=== PATIENT | female | born 1945 | race Hispanic/Latino ===

== ENCOUNTER 2019-11-19 17:28 | Inpatient (IN) | payer MEDICARE ==
[~2019-11-19] VITALS: Ht 152.4 cm; Wt 96.2 kg
--- NOTE | 2019-11-19 17:49 | Emergency Department Note ---
History of Present Illnes History of Present Illness Chief Complaint: General Medicine Complaints History of Present Illness This is a 74 year old female Chief Complaint Comment Patient in from home with reports that she has severe abdominal pain rated 8/10 and was told by Dr Ocampo for evaluation of jaundice to her skin and eyes as well as unintentional weight loss after having blood work done on Sunday. Patient complains of weakness and loss of appetite. Patient reports the pain started 2 weeks ago and the jaundice started about 1 week ago. 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 Any updates have been documented here. (HIRAM MARTINEZ MD) Past Medical History Recent Fever: No Clinical Suspicion of Infectio: No New/Unexplained Change in Ment: No Past Medical History: Hypertension, Diabetes, Hypothyroidism, Hyperlipedemia Past Surgical History: Appendectomy, Hysterectomy, PCI, Hip Replacement, Hernia Repair (HIRAM MARTINEZ MD) Review of Systems Review of Systems Constitutional: Reports as per HPI, Reports weakness EENTM: Reports no symptoms Cardiovascular: Reports no symptoms Respiratory: Reports no symptoms Gastrointestinal: Reports as per HPI, Reports other (Distention) Genitourinary: Reports no symptoms Musculoskeletal: Reports no symptoms Integumentary: Reports as per HPI, Reports change in color (jaundice) Neurological: Reports no symptoms Psychological: Reports no symptoms Endocrine: Reports no symptoms Hematological/Lymphatic: Reports no symptoms (HIRAM MARTINEZ MD) Physical Exam Related Data Allergies: Coded Allergies: morphine (Verified Allergy, Mild, HIVES, 04/21/11) Sulfa (Sulfonamide Antibiotics) (Verified Allergy, Unknown, 11/19/19) Uncoded Allergies: SULFA (Allergy, Mild, HIVES, 04/21/11) Triage Vital Signs Vital Signs Date Time Temp Pulse Resp B/P (MAP) Pulse Ox O2 Delivery O2 Flow Rate FiO2 11/19/19 17:33 98.2 80 18 160/60 99 Room Air Vital signs reviewed: Yes (HIRAM MARTINEZ MD) Physical Exam CONSTITUTIONAL Constitutional: Present well-developed, Present well-nourished HENT HENT: Present normocephalic, Present atraumatic, Present oropharynx clear/moist, Present nose normal HENT L/R: Present left ext ear normal, Present right ext ear normal EYES Eyes: Reports PERRL, Reports conjunctivae normal NECK Neck: Present ROM normal PULMONARY Pulmonary: Present effort normal, Present breath sounds normal CARDIOVASCULAR Cardiovascular: Present regular rhythm, Present heart sounds normal, Present capillary refill normal, Present normal rate GASTROINTESTINAL Abdominal: Present soft, Present nontender, Present bowel sounds normal, Presen t distension GENITOURINARY Genitourinary: Present exam deferred SKIN Skin: Present warm, Present dry, Present jaundiced MUSCULOSKELETAL Musculoskeletal: Present ROM normal NEUROLOGICAL Neurological: Present alert, Present oriented x 3, Present no gross motor or sensory deficits PSYCHOLOGICAL Psychological: Present mood/affect normal, Present judgement normal (HIRAM MARTINEZ MD) Results Laboratory Lab results reviewed: Yes (HIRAM MARTINEZ MD) Laboratory Laboratory Tests Test 11/19/19 18:15 11/19/19 17:50 11/19/19 17:28 White Blood Count 7.73 x10e3/uL (4.8-10.8) Red Blood Count 4.39 x10e6/uL (3.6-5.1) Hemoglobin 11.3 g/dL (12.0-16.0) Hematocrit 36.1 % (34.2-44.1) Mean Corpuscular Volume 82.2 fL (81-99) Mean Corpuscular Hemoglobin 25.7 pg (28-32) Mean Corpuscular Hemoglobin Concent 31.3 g/dL (31-35) Red Cell Distribution Width 19.8 % (11.7-14.4) Platelet Count 282 x10e3/uL (140-360) Neutrophils (%) (Auto) 78.3 % (38.7-80.0) Lymphocytes (%) (Auto) 12.2 % (18.0-39.1) Monocytes (%) (Auto) 7.0 % (4.4-11.3) Eosinophils (%) (Auto) 1.6 % (0.0-6.0) Basophils (%) (Auto) 0.4 % (0.0-1.0) Neutrophils # (Auto) 6.1 (2.1-6.9) Lymphocytes # (Auto) 0.9 (1.0-3.2) Monocytes # (Auto) 0.5 (0.2-0.8) Eosinophils # (Auto) 0.1 (0.0-0.4) Basophils # (Auto) 0.0 (0.0-0.1) Absolute Immature Granulocyte (auto 0.04 x10e3/uL (0-0.1) Prothrombin Time 14.9 seconds (11.9-14.5) Prothromb Time International Ratio 1.11 Sodium Level 133 mmol/L (136-145) Potassium Level 4.2 mmol/L (3.5-5.1) Chloride Level 100 mmol/L (98-107) Carbon Dioxide Level 17 mmol/L (22-29) Anion Gap 20.2 mmol/L (8-16) Blood Urea Nitrogen 20 mg/dL (7-26) Creatinine 1.50 mg/dL (0.57-1.11) Estimat Glomerular Filtration Rate 34 ML/MIN (60-) BUN/Creatinine Ratio 13 (6-25) Glucose Level 373 mg/dL (74-118) Calcium Level 10.6 mg/dL (8.4-10.2) Total Bilirubin 12.1 mg/dL (0.2-1.2) Aspartate Amino Transf (AST/SGOT) 103 IU/L (5-34) Alanine Aminotransferase (ALT/SGPT) 78 IU/L (0-55) Alkaline Phosphatase 951 IU/L (40-150) Ammonia 97 UG/DL (31-123) Total Protein 7.4 g/dL (6.5-8.1) Albumin 3.2 g/dL (3.5-5.0) Globulin 4.2 g/dL (2.3-3.5) Albumin/Globulin Ratio 0.8 (0.8-2.0) Lipase 67 U/L (8-78) Lab results reviewed: Yes (ERI QUIROGA MD) Imaging Imaging results reviewed: Yes (HIRAM MARTINEZ MD) Imaging results reviewed: Yes Impressions Procedure: [id number] CT/CT ABDOMEN/PELVIS WO Exam Date: 11/19/19 Exam Time: 1830 REPORT STATUS: Signed EXAM: CT Abdomen and Pelvis WITHOUT contrast INDICATION: Abdominal distention and jaundice. COMPARISON: None. TECHNIQUE: Abdomen and pelvis were scanned utilizing a multidetector helical scanner from the lung base to the pubic symphysis without administration of IV contrast. Absence of intravenous contrast decreases sensitivity for detection of focal lesions and vascular pathology. Coronal and sagittal reformations were obtained. Routine protocol was performed. IV CONTRAST: None ORAL CONTRAST: None COMPLICATIONS: None RADIATION DOSE: Total DLP: 796 mGy*cm Estimated effective dose: (DLP x 0.015 x size factor) mSv CTDIvol has been reviewed. It is below the limits set by the Radiation Protocol Committee (RPC). Dose modulation, iterative reconstruction, and/or weight based adjustment of the mA/kV was utilized to reduce the radiation dose to as low as reasonably achievable. FINDINGS: LINES and TUBES: None. LOWER THORAX: The partially imaged base of the heart demonstrates atherosclerotic calcification of the coronary vessels. HEPATOBILIARY: No focal hepatic lesions. There is intra- and extra- hepatic biliary dilation. GALLBLADDER: No radio-opaque stones or sludge. No wall thickening. SPLEEN: No splenomegaly. PANCREAS: No focal masses or ductal dilatation. ADRENALS: There is a 2.1 x 1.4 cm left adrenal adenoma. The right adrenal gland is normal. KIDNEYS/URETERS: The bilateral kidneys appear atrophic which can be related to chronic medical renal disease. No hydronephrosis. No cystic or solid mass lesions. No stones. GI TRACT: No abnormal distention, wall thickening, or evidence of bowel obstruction. Appendix is normal. PELVIC ORGANS/BLADDER: Evaluation of pelvic organs is limited by streak artifact from right hip hardware. There is a cystic well-circumscribed mass in the pelvis which measures approximately 5.0 x 1.4 cm (series 2 image 69). LYMPH NODES: No lymphadenopathy. VESSELS: Scattered mild arterial vascular calcifications. PERITONEUM / RETROPERITONEUM: No free air or fluid. 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 No radiographic evidence of hardware complication. There are degenerative changes in the spine. No suspicious osteolytic or osteoblastic lesions SOFT TISSUES: There are granulomatous changes of the posterior soft tissues, likely from prior injections. IMPRESSION: 1. Intra- and extra- hepatic biliary dilation which can be due to post cholecystectomy resevoir effect. However, there are are are no prior images for direct comparison. Patient may benefit from HIDA scan to evaluate functional excretion within the biliary system or MRCP for retained extrahepatic ductal stones. 2. Cystic mass in the pelvis which measures up to 5 cm. Recommend further evaluation of this mass with dedicated pelvic ultrasound and HARDNESS TESTER consultation as this is an abnormal finding in patient of this age group. Signed by: Shira Og MD on 11/19/2019 7:56 PM Dictated By: SHIRA OG MD 54 Transcribed By: DAYRON on 11/19/191955 COPY TO: HIRAM MARTINEZ MD~ (ERI QUIROGA MD) Diagnostics Tests Diagnostic test(s) reviewed: Yes (HIRAM MARTINEZ MD) Assessment & Plan Medical Decision Making MDM 74 y.o F presents for Jaundice, abd distention, weakness. Concern for hepatobiliary etiology. Dr. Adams patient. Labs and CT ordered. Transferred care to Dr. Quiroga @ 1800 (HIRAM MARTINEZ MD) [facility] I SPOKE WITH DR ADAMS AND DR Sumaya ALCALA, ADMIT INPATIENT, ORDER MRCP IN AM (ERI QUIROGA MD) Assessment & Plan Final Impression: (1) Jaundice (HIRAM MARTINEZ MD) Final Impression: (1) Jaundice (2) Total bilirubin, elevated (ERI QUIROGA MD) Depart Disposition: ADMITTED Last Vital Signs Date Time Temp Pulse Resp B/P (MAP) Pulse Ox O2 Delivery O2 Flow Rate FiO2 11/19/19 17:33 98.2 80 18 160/60 99 Room Air (HIRAM MARTINEZ MD) HIRAM MARTINEZ MD Nov 19, 2019 17:49 ERI QUIROGA MD Nov 19, 2019 19:07
[2019-11-19 17:57] LABS: BASOPHILS % 0.4 % (0.0-1.0); EOSINOPHILS # (AUTO) 0.1 (0.0-0.4); EOSINOPHILS % 1.6 % (0.0-6.0); HEMATOCRIT 36.1 % (34.2-44.1); HEMOGLOBIN 11.3 g/dL (12.0-16.0); LYMPHOCYTES # (AUTO) 0.9 (1.0-3.2); LYMPHOCYTES % 12.2 % (18.0-39.1); MEAN CORPUSCULAR HEMOGLOBIN 25.7 pg (28-32); MEAN CORPUSCULAR HGB CONC 31.3 g/dL (31-35); MEAN CORPUSCULAR VOLUME 82.2 fL (81-99); MONOCYTES # (AUTO) 0.5 (0.2-0.8); NEUTROPHILS # (AUTO) 6.1 (2.1-6.9); NEUTROPHILS % 78.3 % (38.7-80.0); PLATELET COUNT 282 x10e3/uL (140-360); RED BLOOD COUNT 4.39 x10e6/uL (3.6-5.1); RED CELL DISTRIBUTION WIDTH 19.8 % (11.7-14.4)
[2019-11-19 18:06] LABS: INR 1.11; PROTHROMBIN TIME 14.9 seconds (11.9-14.5)
[2019-11-19 18:16] LABS: ALBUMIN 3.2 g/dL (3.5-5.0); ALBUMIN/GLOBULIN RATIO 0.8 (0.8-2.0); ANION GAP 20.2 mmol/L (8-16); CALCIUM 10.6 mg/dL (8.4-10.2); CREATININE, SERUM 1.5 mg/dL (0.57-1.11); POTASSIUM 4.2 mmol/L (3.5-5.1)
--- OUTSIDE RECORDS SUMMARY | 2019-11-19 18:17 | XMS REPORT | Continuity of Care Document ---
Author Author [facility] t Organization [facility] Address [address] [place] [address] Phone Unavailable Care Team Providers Care Chairlift Operator Name Role Phone Unavailable Unavailable Payers Payer Name Policy Type Policy Number Effective Date Expiration Date S ource Problems Condition Name Condition Details Condition Category Status Onset Date Resolution Date Last Treatment Date Treating Clinician Comments Source Morbid (severe) obesity due to excess calories Morbid (severe) obesity due to excess calories Active Problem 2018 Betimaddison Amy Hernandez Problem Active 2018 02:46:38 Leandro Oakley 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 Varicose veins of bilateral lower extremities with other complications Active Diagnosis 2018 Samuel Hernandez Diagnosis Active 2018 02:46:38 Paty Oakley Type 2 diabetes mellitus with unspecified complication s Type 2 diabetes mellitus with unspecified complications Active Diagnosis 2018 Samuel Hernandez Diagnosis Active 2018 02:46:3 8 Paty Oakley Pure hypercholesterolemia Pure hypercholesterolemia Active Diagnosis 2018 Samuel Hernandez Diagnosis Active 2018 02:46:38 Paty Oakley Abnormal electrocardiogram Abn ormal electrocardiogram Active Diagnosis 2018 Samuel Hernandez Diagnosis Active 2018 02:46:38 Paty Oakley Essential (primary) hypertension Essential (primary) hypertension Active Diagnosis 2018 Samuel Hernandez Diagnosis Active 2018 02:46:38 Paty Oakley Abnormal gait Abno rmal gait Active Problem 2018 Samuel Hernandez Problem Active 2018 02:46:38 Paty Oakley Stented coronary artery Sten marilee coronary artery Active Diagnosis 2018 Samuel Hernandez Diagnosis Active 2018 02:46:38 [facility] Ad[facility] 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 Problem 2018 Samuel Hernandez Problem Active 2018 02:46:38 [facility] Adin Atherosclerosis of iliam[place] coronary arter y of iliam[place] heart without angina pectoris Atherosclerosis of [place] coronary artery of [place] heart without angina pectoris Active Diagnosis 2018 Samuel Hernandez Diagnosis Active 2018 02:46:38 [facility] Coronary artery disease involving plaza ry bypass graft of [place] heart with unstable angina pectoris Coronary artery disease involving coronary bypass graft of [place] heart with unstable angina pectoris Active Problem 01/02/2017 Samuel Hernandez Problem Active 2017-01-02 03:45:55 [facility] DJD (degenerative joint disease) DJD (degenerative joint disease) Active Problem 2018 Samuel Hernandez Problem Active 2018 02:46:38 [facility] Venous insufficiency Veno us insufficiency Active Problem 2018 Samuel Hernandez Problem Active 2018 02:46:38 [facility] Hypothyroidism Hypo thyroidism Active Problem 2018 Samuel Hernandez Problem Active 2018 02:46:38 [facility] Leg pain Leg pain Active Problem 2018 Samule Hernandez Problem Active 2018 02:46:38 Leandro Oakley Carotid bruit Suazo tid bruit Active Problem 01/02/2017 Samuel Hernandez Problem Active 2017-01-02 03:45:55 [facility] Pure hypercholesterolemia Pure hypercholesterolemia Active Problem 01/02/2017 Samuel Hernandez Problem Active 29-12-20 03:45:55 [facility] Lower extremity edema Lowe r extremity edema Active Diagnosis 2018 Samuel Hernandez Diagnosis Active 2018 02:46:38 [facility] Shortness of breath Shor tness of breath Active Diagnosis 2018 Samuel Hernandez Diagnosis Active 2018 02:46:3 8 [facility] Anginal equivalent Janki nal equivalent Active Diagnosis 2018 Samuel Hernandez Diagnosis Active 2018 02:46:3 8 Paty Oakley 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 Active Problem 2018 Samuel Hernandez Problem Active 2018 02:46:38 Paty Oakley Patient unable to exercise Pat ient unable to exercise Active Problem 2018 Samuel Hernandez Problem Active 2018 02:46:38 Paty Oakley 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 Active Problem 2018 Samuel Amy Antwanti Problem Active 2018 02:46:38 Paty Oakley Atherosclerosis of ili[place] coronary artery of [place] he art with angina pectoris Atherosclerosis of [place] coronary artery of [place] heart with angina pectoris Active Problem 2018 Samuel Amy Antwanti Problem A ctive 2018 02:46:38 Paty alvarado Allergies, Adverse Reactions, Alerts Allergy Name Allergy Type Status Severity Reaction(s) Onset Date Inacti ve Date Treating Clinician Comments Source acetaminophen DA Active [place] 2018-08-18 00:00:00 [facility] sulfa sulfa Active Hives 2017-05-28 00:00:00 [facility] Sulfa (Sulfonamide Antibiotics) DA Active [place] 2013-01-09 00 :00:00 [facility] morphine DA Active [place] 2013-01-09 00:00:00 [facility] Medications Ordered Medication Name Filled Medication Name Start Date Stop Da te Current Medication? Ordering Clinician Indication Dosage Frequency Signature (SIG) Comments Components Source Levothyroxine Sodium 2018 02:46:38 Yes Kristied Jeroudi 1 tablet [facility] Sertraline HCl 2018 02:46:38 Yes Ahmad Jeroudi 1 tablet [facility] Lasix 2018 02:46:38 Yes Ahmad Jeroudi 1 tab let [facility] Metformin HCl 2018 02:46:38 Yes Ahrobinsond Jeroudi 1 tablet [facility] Losartan Potassium 2018 02:46:38 Yes Ahrobinsond Jeroudi 1 tablet [facility] Atorvastatin Calcium 2018 02:46:38 Yes Kristied Jeroudi 1 tablet [facility] Clopidogrel Bisulfate 2018 02:46:38 Yes Kristied Jeroudi 1 tablet [facility] Vitamin D High Potency 2018 02:46:38 Yes Ahmad Antwan oudi 1 capsule [facility] Glimepiride 2018 02:46:38 Yes Ahmad Jeroudi 1 tablet [facility] Pantoprazole Sodium 2018 02:46:38 Yes Ahmad Jeroudi 1 tablet [facility] Famotidine 2018 02:46:38 Yes Ahmad Jeroudi 1 tablet at bedtime [facility] Donepezil HCl 2018 02:46:38 Yes Ahmad Jeroudi 1 tablet at bedtime [facility] Metoprolol Succinate 2018 02:46:38 Yes Ahmad Jeroudi 1 tablet [facility] Gabapentin 2017-01-02 03:45:55 Yes Betiamed Jeroudi not defined [facility] Donepezil Hydrochloride 2017-01-02 03:45:55 Yes Samuel Moncadaoudi 1 tablet at bedtime [facility] Metoprolol Succinate 2017-01-02 03:45:55 Yes Samuel Moncadaoudi 1 tablet [facility] Lasix 2016-09-23 02:46:36 Yes Samuel Moncadaoudi 1 t ablet [facility] Sertraline HCl 2016-09-23 02:46:36 Yes Samuel Jeroudi 1 tablet [facility] Famotidine 2016-09-23 02:46:36 Yes Samuel Moncadaoudi 1 tablet at bedtime [facility] Atorvastatin Calcium 2016-09-23 02:46:36 Yes Samuel Jeroudi 1 tablet [facility] Metformin HCl 2016-09-23 02:46:36 Yes Samuel Moncadaoudi 1 tablet [facility] Losartan Potassium 2016-09-23 02:46:36 Yes Betiamed Jeroudi 1 tablet [facility] Vitamin D High Potency 2016-09-23 02:46:36 Yes Samuel Whiet eroudi 1 capsule [facility] Pantoprazole Sodium 2016-09-23 02:46:36 Yes Samuel Jeroudi 1 tablet [facility] Levothyroxine Sodium 2016-09-23 02:46:36 Yes Mohamed Jeroudi 1 tablet [facility] Clopidogrel Bisulfate 2016-09-23 02:46:36 Yes Samuel Cook roudi 1 tablet [facility] Glimepiride 2016-09-23 02:46:36 Yes Mohamed Jeroudi 1 tablet [facility] Aspirin 2016-09-23 02:46:32 Yes Samuel Moncadaoudi 1 tablet [facility] Potassium Chloride 2016-09-23 02:46:32 Yes Samuel Hernandez 1 capsule [facility] Omprezole 2016-09-23 02:46:32 Yes Samuel Moncadaoudi 1 tablet [facility] Furosemide 2016-09-23 02:46:32 Yes Samuel Moncadaoudi 1 tablet [facility] Vital Signs Vital Name Observation Time Observation Value Comments Source Weight 2017-06-13 19:00:00 [facility] Height 2017-06-13 19:00:00 [facility] Temperature Oral (F) 2017-06-13 19:00:00 98.4 F [facility] Heart Rate 2017-06-13 19:00:00 [facility] Diastolic (mm Hg) 2017-06-13 19:00:00 [facility] Systolic (mm Hg) 2017-06-13 19:00:00 Leandro dieterl [facility] Weight 2017-05-28 20:00:00 [facility] Height 2017-05-28 20:00:00 [facility] Temperature Oral (F) 2017-05-28 20:00:00 97.6 F [facility] Heart Rate 2017-05-28 20:00:00 [facility] Diastolic (mm Hg) 2017-05-28 20:00:00 [facility] [place] [facility] Systolic (mm Hg) 2017-05-28 20:00:00 Leandro samy [facility] Weight 2016-12-25 20:30:00 [facility] Height 2016-12-25 20:30:00 [facility] Temperature Oral (F) 2016-12-25 20:30:00 97.1 F [facility] Heart Rate 2016-12-25 20:30:00 [facility] Diastolic (mm Hg) 2016-12-25 20:30:00 [facility] Systolic (mm Hg) 2016-12-25 20:30:00 Leandro dieterl [facility] Weight 2016-06-12 18:00:00 [facility] Height 2016-06-12 18:00:00 [facility] Temperature Oral (F) 2016-06-12 18:00:00 97.6 F [facility] Heart Rate 2016-06-12 18:00:00 [facility] Diastolic (mm Hg) 2016-06-12 18:00:00 [facility] [place] [facility] Systolic (mm Hg) 2016-06-12 18:00:00 Leandro rial [facility] Weight 2015-12-02 18:30:00 [facility] Height 2015-12-02 18:30:00 [facility] Temperature Oral (F) 2015-12-02 18:30:00 97.1 F [facility] Heart Rate 2015-12-02 18:30:00 [facility] Diastolic (mm Hg) 2015-12-02 18:30:00 [facility] Systolic (mm Hg) 2015-12-02 18:30:00 Leandro rial [place] [facility] Weight 2015-10-06 18:30:00 [facility] Height 2015-10-06 18:30:00 [facility] Temperature Oral (F) 2015-10-06 18:30:00 97.1 F [facility] Heart Rate 2015-10-06 18:30:00 [facility] Diastolic (mm Hg) 2015-10-06 18:30:00 [facility] Systolic (mm Hg) 2015-10-06 18:30:00 Leandro [facility] Weight 2015-09-07 19:00:00 [facility] Height 2015-09-07 19:00:00 [facility] Temperature Oral (F) 2015-09-07 19:00:00 96.7 F [facility] Heart Rate 2015-09-07 19:00:00 [facility] Diastolic (mm Hg) 2015-09-07 19:00:00 [facility] Systolic (mm Hg) 2015-09-07 19:00:00 [facility] Weight 2015-08-25 19:30:00 [facility] Height 2015-08-25 19:30:00 [facility] Temperature Oral (F) 2015-08-25 19:30:00 97.2 F [facility] Heart Rate 2015-08-25 19:30:00 [facility] Diastolic (mm Hg) 2015-08-25 19:30:00 [facility] [place] [facility] Systolic (mm Hg) 2015-08-25 19:30:00 Leandro rial [facility] Weight 2015-02-17 19:00:00 [facility] Height 2015-02-17 19:00:00 [facility] Temperature Oral (F) 2015-02-17 19:00:00 98.0 F [facility] Heart Rate 2015-02-17 19:00:00 [facility] Diastolic (mm Hg) 2015-02-17 19:00:00 [facility] [place] [facility] Systolic (mm Hg) 2015-02-17 19:00:00 Leandro rial [facility] Procedures This patient has no known procedures. Encounters Start Date/Time End Date/Time Encounter Type Admission Type [facility] Care Department Encounter ID Source 2017-06-13 14:00:00 2017-06-13 14:00:00 Outpatient Samuel Hernandez MD [place] [id number] [employer] 2017-05-28 15:00:00 2017-05-28 15:00:00 Outpatient Samuel Hernandez MD [place] [id number] [employer] 2016-12-25 14:30:00 2016-12-25 14:30:00 Outpatient Samuel Hernandez MD PA [id number] [employer] 2016-06-12 13:00:00 2016-06-12 13:00:00 Outpatient Samuel Hernandez MD PA [id number] [employer] 2015-12-02 13:30:00 2015-12-02 13:30:00 Outpatient Samuel Hernandez MD PA [id number] [employer] 2015-10-06 13:30:00 2015-10-06 13:30:00 Outpatient Samuel Hernandez MD PA [id number] [employer] 2015-09-07 14:00:00 2015-09-07 14:00:00 Outpatient Samuel Hernandez MD PA [id number] [employer] 2015-08-25 14:30:00 2015-08-25 14:30:00 Outpatient Samuel Hernandez MD PA [id number] [employer] 2015-02-17 14:00:00 2015-02-17 14:00:00 Outpatient Samuel Hernandez MD [place] [id number] [employer] Results Test Description Test Time Test Comments Results Result Comments Source GLUBED 2019-07-24 11:32:00 Test Item GLUBED (test code = GLUBED) 176 mg/dL 74-106 H Performed by certified bullet assembly press operator at [facility] [id number] 06:43:00* Test Item Value Reference Range Interpretation Comments GLUBED (test code = GLUBED) 147 mg/dL 74-106 H Performed by certified bullet assembly press operator at [facility] BASIC METABOLIC [id number] 05:43:00* Test Item Value Reference Range Interpretation Comments SODIUM (test code = NA) 143 mmol/L 136-145 N POTASSIUM (test code = K) 4.1 mmol/L 3.5-5.1 N CHLORIDE (test code = CL) 108.0 mmol/L 98-107 H CARBON DIOXIDE (test code = CO2) 28.0 mmol/L 21-32 N ANION GAP (test code = GAP) 11.1 10-20 N GLUCOSE (test code = GLU) 121 mg/dL 74-106 H BLOOD UREA NITROGEN (test code = BUN) 14 mg/dL 7-18 N GLOMERULAR FILTRATION RATE (test code = GFR) 54 mL/min >=60 Estimated GFR by using Modified MDRD formula.Chronic kidney disease is defined as either kidney damageor GFR <60 mL/min/1.73 m2 for >3 months. CREATININE (test code = CREAT) 1.00 mg/dL 0.55-1.02 N Note change in reference range due to change in reagent. BUN/CREATININE RATIO (test code = BUN/CREA) 14.5 10-20 N CALCIUM (test code = CA) 9.4 mg/dL 8.5-10.1 N BASIC METABOLIC [id number] 05:39:00* Test Item Value Reference Range Interpretation Comments SODIUM (test code = NA) 143 mmol/L 136-145 N POTASSIUM (test code = K) 4.1 mmol/L 3.5-5.1 N CHLORIDE (test code = CL) 108.0 mmol/L 98-107 H CARBON DIOXIDE (test code = CO2) mmol/L 21-32 ANION GAP (test code = GAP) 10-20 GLUCOSE (test code = GLU) mg/dL 74-106 BLOOD UREA NITROGEN (test code = BUN) mg/dL 7-18 GLOMERULAR FILTRATION RATE (test code = GFR) mL/min >=60 CREATININE (test code = CREAT) mg/dL 0.55-1.02 BUN/CREATININE RATIO (test code = BUN/CREA) 10-20 CALCIUM (test code = CA) mg/dL 8.5-10.1 CBC W/AUTO [id number] 04:33:00* Test Item Value Reference Range Interpretation Comments WHITE BLOOD CELL (test code = WBC) 6.2 K/mm3 4.5-12.5 N RED BLOOD CELL (test code = RBC) 3.64 mill/mm3 3.7-5.2 L HEMOGLOBIN (test code = HGB) 9.4 gram/dL 11.5-15.5 L HEMATOCRIT (test code = HCT) 31.0 % 36.0-46.0 L MEAN CELL VOLUME (test code = MCV) 85.2 fL 80-98 N MEAN CELL HGB (test code = MCH) 25.8 picogram 27.0-33.0 L MEAN CELL HGB CONCETRATION (test code = MCHC) 30.3 gram/dL 33.0-36. 0 L RED CELL DISTRIBUTION WIDTH (test code = RDW) 15.0 % 11.6-16. 2 N RED CELL DISTRIBUTION WIDTH SD (test code = RDW-SD) 46.5 fL 37 .0-51.0 N PLATELET COUNT (test code = PLT) 203 K/mm3 150-450 N MEAN PLATELET VOLUME (test code = MPV) 10.5 fL 6.7-11.0 N NEUTROPHIL % (test code = NT%) 68.3 % 39.0-69.0 N IMMATURE GRANULOCYTE % (test code = IG%) 0.3 % 0.0-5.0 N LYMPHOCYTE % (test code = LY%) 22.7 % 25.0-55.0 L MONOCYTE % (test code = MO%) 5.6 % 0.0-10.0 N EOSINOPHIL % (test code = EO%) 2.6 % 0.0-5.0 N BASOPHIL % (test code = BA%) 0.5 % 0.0-1.0 N NUCLEATED RBC % (test code = NRBC%) 0.0 % 0-0 N NEUTROPHIL # (test code = NT#) 4.24 K/mm3 1.8-7.7 N IMMATURE GRANULOCYTE # (test code = IG#) 0.02 x10 3/uL 0-0.03 N LYMPHOCYTE # (test code = LY#) 1.41 K/mm3 1.0-5.0 N MONOCYTE # (test code = MO#) 0.35 K/mm3 0-0.8 N EOSINOPHIL # (test code = EO#) 0.16 K/mm3 0.0-0.5 N BASOPHIL # (test code = BA#) 0.03 K/mm3 0.0-0.2 N NUCLEATED RBC # (test code = NRBC#) 0.00 K/mm3 0.0-0.1 N MANUAL DIFF REQUIRED (test code = MDIFF) NO [id number] 21:21:00* Test Item Value Reference Range Interpretation Comments GLUBED (test code = GLUBED) 211 mg/dL 74-106 H [facility] [id number] 16:36:00* Test Item Value Reference Range Interpretation Comments GLUBED (test code = GLUBED) 138 mg/dL 74-106 H Performed by certified bullet assembly press operator at [facility] [id number] 07:29:00* Test Item Value Reference Range Interpretation Comments GLUBED (test code = GLUBED) 156 mg/dL 74-106 H Performed by certified bullet assembly press operator at [facility] Novel Coronavirus 2019 [id number] 18:14:00* Test Item Value Reference Range Interpretation Comments Novel Coronavirus 2019 Inhouse (test code = COVNONPUI) Negative Negative Testing Criteria: Preprocedure ScreeningNovel Coronavirus 2019 Inhouse 2019-07-20 18:14:00* Test Item Value Reference Range Interpretation Comments Novel Coronavirus 2019 Inhouse (test code = COVNONPUI) Negative Negative Testing Criteria: Preprocedure ScreeningCOMPREHENSIVE METABOLIC PANEL 2019-07-18 10:33:00* Test Item Value Reference Range Interpretation Comments SODIUM (test code = NA) 141 mmol/L 136-145 N POTASSIUM (test code = K) 4.1 mmol/L 3.5-5.1 N CHLORIDE (test code = CL) 105.0 mmol/L 98-107 N CARBON DIOXIDE (test code = CO2) 26.0 mmol/L 21-32 N ANION GAP (test code = GAP) 14.1 10-20 N GLUCOSE (test code = GLU) 137 mg/dL 74-106 H BLOOD UREA NITROGEN (test code = BUN) 18 mg/dL 7-18 N GLOMERULAR FILTRATION RATE (test code = GFR) 54 mL/min >=60 Estimated GFR by using Modified MDRD formula.Chronic kidney disease is defined as either kidney damageor GFR <60 mL/min/1.73 m2 for >3 months. CREATININE (test code = CREAT) 1.00 mg/dL 0.55-1.02 N Note change in reference range due to change in reagent. BUN/CREATININE RATIO (test code = BUN/CREA) 17.5 10-20 N TOTAL PROTEIN (test code = PROT) 7.6 gram/dL 6.4-8.2 N ALBUMIN (test code = ALB) 3.9 g/dL 3.4-5.0 N GLOBULIN (test code = GLOB) 3.7 gram/dL 2.7-4.2 N ALBUMIN/GLOBULIN RATIO (test code = A/G) 1.1 0.75-1.50 N CALCIUM (test code = CA) 10.0 mg/dL 8.5-10.1 N BILIRUBIN TOTAL (test code = BILT) 0.90 mg/dL 0.0-1.0 N SGOT/AST (test code = AST) 25 IUnit/L 15-37 N SGPT/ALT (test code = ALT) 20 IUnit/L 12-78 N ALKALINE PHOSPHATASE TOTAL (test code = ALKP) 105 IUnit/L 45-117 N Note change in reference range due to change in reagent. COMPREHENSIVE METABOLIC [id number] 10:19:00* Test Item Value Reference Range Interpretation Comments SODIUM (test code = NA) 141 mmol/L 136-145 N POTASSIUM (test code = K) 4.1 mmol/L 3.5-5.1 N CHLORIDE (test code = CL) 105.0 mmol/L 98-107 N CARBON DIOXIDE (test code = CO2) mmol/L 21-32 ANION GAP (test code = GAP) 10-20 GLUCOSE (test code = GLU) mg/dL 74-106 BLOOD UREA NITROGEN (test code = BUN) mg/dL 7-18 GLOMERULAR FILTRATION RATE (test code = GFR) mL/min >=60 CREATININE (test code = CREAT) mg/dL 0.55-1.02 BUN/CREATININE RATIO (test code = BUN/CREA) 10-20 TOTAL PROTEIN (test code = PROT) gram/dL 6.4-8.2 ALBUMIN (test code = ALB) g/dL 3.4-5.0 GLOBULIN (test code = GLOB) gram/dL 2.7-4.2 ALBUMIN/GLOBULIN RATIO (test code = A/G) 0.75-1.50 CALCIUM (test code = CA) mg/dL 8.5-10.1 BILIRUBIN TOTAL (test code = BILT) mg/dL 0.0-1.0 SGOT/AST (test code = AST) IUnit/L 15-37 SGPT/ALT (test code = ALT) IUnit/L 12-78 ALKALINE PHOSPHATASE TOTAL (test code = ALKP) IUnit/L 45-117 CBC W/AUTO [id number] 09:54:00* Test Item Value Reference Range Interpretation Comments WHITE BLOOD CELL (test code = WBC) 6.7 K/mm3 4.5-12.5 N RED BLOOD CELL (test code = RBC) 3.97 mill/mm3 3.7-5.2 N HEMOGLOBIN (test code = HGB) 10.4 gram/dL 11.5-15.5 L HEMATOCRIT (test code = HCT) 33.9 % 36.0-46.0 L MEAN CELL VOLUME (test code = MCV) 85.4 fL 80-98 N MEAN CELL HGB (test code = MCH) 26.2 picogram 27.0-33.0 L MEAN CELL HGB CONCETRATION (test code = MCHC) 30.7 gram/dL 33.0-36. 0 L RED CELL DISTRIBUTION WIDTH (test code = RDW) 15.0 % 11.6-16. 2 N RED CELL DISTRIBUTION WIDTH SD (test code = RDW-SD) 46.5 fL 37 .0-51.0 N PLATELET COUNT (test code = PLT) 243 K/mm3 150-450 N MEAN PLATELET VOLUME (test code = MPV) 11.3 fL 6.7-11.0 H NEUTROPHIL % (test code = NT%) 72.4 % 39.0-69.0 H IMMATURE GRANULOCYTE % (test code = IG%) 0.5 % 0.0-5.0 N LYMPHOCYTE % (test code = LY%) 20.0 % 25.0-55.0 L MONOCYTE % (test code = MO%) 5.0 % 0.0-10.0 N EOSINOPHIL % (test code = EO%) 1.8 % 0.0-5.0 N BASOPHIL % (test code = BA%) 0.3 % 0.0-1.0 N NUCLEATED RBC % (test code = NRBC%) 0.0 % 0-0 N NEUTROPHIL # (test code = NT#) 4.82 K/mm3 1.8-7.7 N IMMATURE GRANULOCYTE # (test code = IG#) 0.03 x10 3/uL 0-0.03 N LYMPHOCYTE # (test code = LY#) 1.33 K/mm3 1.0-5.0 N MONOCYTE # (test code = MO#) 0.33 K/mm3 0-0.8 N EOSINOPHIL # (test code = EO#) 0.12 K/mm3 0.0-0.5 N BASOPHIL # (test code = BA#) 0.02 K/mm3 0.0-0.2 N NUCLEATED RBC # (test code = NRBC#) 0.00 K/mm3 0.0-0.1 N MANUAL DIFF REQUIRED (test code = MDIFF) NO - XR CHEST 2 [id number] 08:12:00 FAX: Fredi Joy MD [phone] [employer]: O St: PRE FAX: Saumel Colvin [phone] Name: MARCO HERRERA [facility] : 1945 Age/S: 73/F [address] Unit #: [id number] Loc: [place] [address] Phys: Samuel Hernandez MD Acct: [id number] Dis Date: Status: PRE SDC PHONE #: [phone] Exam Date: 07/18/2019 0803 FAX #: [phone] Reason: PRE OP EXAMS: CPT CODE: [id number] XR CHEST 2 V 30716 HISTORY: PRE OP TECHNIQUE: PA and lateral chest x-ray COMPARISON: 08/16/18 FINDINGS: No airspace consolidation or pleural effusion. Normal heart size. Thoracic aortic vascular calcification. Degenerative changes of the spine and shoulders. IMPRESSION: No radiographic evidence of acute cardiopulmonary process. LOCATION: at 0812 Reported and signed by: Xochitl Kramer D.O. CC: Fredi Ocampo; Samuel Hernandez MD Technologist: Shaniqua Washington RT(R) Trnscrd Date/Time/By: 07/17 (811) : By: [email or web address] Orig Print D/T: S: 07/18/2019 (15) PAGE 1 Signed Report - MRI BRAIN W/O [id number] 18:12:00 FAX: Fredi Joy MD [phone] [employer]: [address] St: ADM FAX: Riky Hussein MD [phone] FAX: Rafal Richardson [phone] --------- Name: MARCO HERRERA [facility] : 1945 Age/S: 72/F [address] it #: [id number] Loc: V.[address] [place] [address] Phys: Rafal Richardson MD Acct: [id number] Dis Date: Status: ADM IN ONE #: [phone] Exam Date: 08/18/2018 1743 FAX #: [phone] Reason: PERSISTENT DIZZINESS EXAMS: CPT CODE: [id number] MR I BRAIN W/O CONTRAST [id number] HISTORY: PERSI STENT DIZZINESS TECHNIQUE: Sagittal T1, axial FLAIR, axial T2, ax ial gradient T2, axial T1, coronal T2, and DWI/ADC sequences of the brain were acquired. Examination acquired within 24 hours of arrival. COMPARISON: Head CT 08/16/18 FINDINGS: No eviden ce of acute ischemic insult. Mild periventricular chronic microvascular is chemic changes. No intracranial hemorrhage. No intracranial mass or mass e ffect. Mild parenchymal atrophy. No hydrocephalus. Empty sella configurati on of the pituitary. No extra-axial fluid collections. Normal vascular jhon w-voids are identified. Visualized orbital contents are unremarkable. Para nasal sinuses are clear. Calvarial and skull base marrow signal is p reserved. IMPRESSION: No acute infarct or oth er acute intracranial process. No mass or mass effect. at 1811 Reported and signed by: Xochitl Kramer D.O. CC: Fredi Ocampo; Riky Vasquez MD; Rafal Richardson Technologist: Renetta Song RT(R)(MR) Trnscrd Date/Time/By: 08/18/2018 (1811) : By: [email or web address] [email or web address] Orig Print D/T: S: 08/18/2018 (1814) P AGE 1 Signed Report GLUBED 2018-08-18 16:44:00* Test Item Value Reference Range Interpretation Comments GLUBED (test code = GLUBED) 124 mg/dL 74-106 H Performed by certified bullet assembly press operator at [facility] [id number] 11:35:00* Test Item Value Reference Range Interpretation Comments GLUBED (test code = GLUBED) 281 mg/dL 74-106 H Performed by certified bullet assembly press operator at [facility] [id number] 07:15:00* Test Item Value Reference Range Interpretation Comments GLUBED (test code = GLUBED) 128 mg/dL 74-106 H Performed by certified bullet assembly press operator at [facility] [id number] 20:31:00* Test Item Value Reference Range Interpretation Comments GLUBED (test code = GLUBED) 125 mg/dL 74-106 H Performed by certified bullet assembly press operator at [facility] [id number] 16:49:00* Test Item Value Reference Range Interpretation Comments GLUBED (test code = GLUBED) 93 mg/dL 74-106 N Performed by certified bullet assembly press operator at [facility] - CT CHEST W/O [id number] 16:40:00 Name: MARCO HERRERA [facility] : 1945 Age/S: 72 / F [address] Unit #: [id number] Loc: [place] [address] Phys: Rafal Richardson MD Acct: [id number] Dis Date: Status: ADM IN PHONE #: [phone] Exam Date: 08/17/2018 1635 FAX #: [phone] Reason: DIZZINESS/SOB EXAMS: CPT CODE: [id number] CT CHEST W/O CONTRAST [id number] REASON FOR EXAM: DIZZINESS/SOB EXAM ORDER DATE: 08/17/2018 2:30 PM Ordering MMinh: Rafal Barcenas MD PROCEDURE: - CT CHEST W/O CONTRAST FINDINGS: CT images of the chest were obtained without IV contrast. Reconstructed sagittal and coronal images of the chest were provided for interpretation. Dose modulation, iterative reconstruction, and/or weight based adjustment of the MA/KV was utilized to reduce the radiation dose to as low as reasonably achievable. The heart size is minimally enlarged. No evidence of pericardial effusion. The thoracic aorta is aorta is unremarkable. No evidence of mediastinal or hilar adenopathy. Patchy atelectasis of the bases No evidence of pleural effusion. IMPRESSION: Minimal cardiomegaly and hypoaerated lungs with atel ectasis in the bases Electronically Signed by Gia Melendrez on 2018 at 1640 Reported and signed by: Kei Melendrez M.D. CC: Fredi Ocampo; Riky Vasquez MD; Rafal Richardson Technolog ist:Nanette Rivas RT(R),CT CTDI: DLP: Trnscb Date/Time: 0 08/17/2018 (1640) tMERRICK Orig Print D/T: S: 08/17/2018 (1643) PAGE 1 Signed Report [id number] 11:48:00* Test Item Value Reference Range Interpretation Comments GLUBED (test code = GLUBED) 129 mg/dL 74-106 H Performed by certified bullet assembly press operator at [facility] [id number] 08:18:00* Test Item Value Reference Range Interpretation Comments GLUBED (test code = GLUBED) 85 mg/dL 74-106 N Performed by certified bullet assembly press operator at [facility] [id number] 02:55:00* Test Item Value Reference Range Interpretation Comments GLYCOSYLATED HEMOGLOBIN (HA1C) (test code = GLYHGB) 6.8 % HbA1 4. 8-6.0 H ESTIMATED AVERAGE GLUCOSE (test code = EAG) 148 MG/DL [id number] 02:55:00* Test Item Value Reference Range Interpretation Comments TROPONIN-I (test code = TROPI) 0.016 ng/mL 0-0.045 N COMMENTS TO MENTALLY RETARDED TEACHER: COLLECT 3 HOURS AFTER PREVIOUS SAMPLETHYROID PROFILE [id number] 02:55:00* Test Item Value Reference Range Interpretation Comments T3 UPTAKE (test code = T3UP) 30.0 % 30.0-40.0 N T4 (THYROXINE) (test code = T4) 8.9 ug/dL 4.5-13.9 N T7 (FREE THYROXINE INDEX) (test code = T7) 2.67 FTI 1.3-5.1 N THYROID STIMULATING HORMONE (test code = TSH) 0.996 uIU/mL 0.36-3.7 4 N TSH REFERENCE RANGES: EUTHYROID: 0.35 - 4.3 mIU/mL HYPO : > 5.5 mIU/mL HYPER : < 0.35 mIU/mL BASIC METABOLIC [id number] 02:55:00* Test Item Value Reference Range Interpretation Comments SODIUM (test code = NA) 145 mmol/L 136-145 RESU LT VERIFIED BY REPEAT ANALYSIS POTASSIUM (test code = K) 4.2 mmol/L 3.5-5.1 N CHLORIDE (test code = CL) 110.0 mmol/L 98-107 H CARBON DIOXIDE (test code = CO2) 28.0 mmol/L 21-32 N ANION GAP (test code = GAP) 11.2 10-20 N GLUCOSE (test code = GLU) 124 mg/dL 74-106 H BLOOD UREA NITROGEN (test code = BUN) 14 mg/dL 7-18 N GLOMERULAR FILTRATION RATE (test code = GFR) > 60 mL/min >=60 Estimated GFR by using Modified MDRD formula.Chronic kidney disease is defined as either kidney damageor GFR <60 mL/min/1.73 m2 for >3 months. CREATININE (test code = CREAT) 0.80 mg/dL 0.55-1.02 N Note change in reference range due to change in reagent. BUN/CREATININE RATIO (test code = BUN/CREA) 17.1 10-20 N CALCIUM (test code = CA) 9.3 mg/dL 8.5-10.1 N [id number] 00:08:00* Test Item Value Reference Range Interpretation Comments TROPONIN-I (test code = TROPI) <0.015 ng/mL 0-0.045 N COMMENTS TO MENTALLY RETARDED TEACHER: COLLECT 3 HOURS AFTER PREVIOUS SAMPLEURINALYSIS [id number] 17:31:00* Test Item Value Reference Range Interpretation Comments UA COLOR (test code = COLU) LIGHT YELLOW YELLOW UA APPEARANCE (test code = APPU) HAZY CLEAR A UA GLUCOSE DIPSTICK (test code = DGLUU) norm mg/dL NEGATIVE UA BILIRUBIN DIPSTICK (test code = BILU) NEGATIVE mg/dL NEGATIVE UA KETONE DIPSTICK (test code = KETU) neg mg/dL NEGATIVE UA SPECIFIC GRAVITY (test code = SGU) 1.010 1.001-1.035 UA BLOOD DIPSTICK (test code = PRISCILLA) 10 (Trace) Dariusz/uL NEGATIVE A UA PH DIPSTICK (test code = LEXI) 6.0 5.0-8.0 UA PROTEIN DIPSTICK (test code = PROU) 15 (TRACE) mg/dL Neg-15 A UA UROBILINIOGEN DIPSTICK (test code = URO) norm mg/dL 0.0-0.2 UA NITRITE DIPSTICK (test code = MIKE) NEGATIVE NEGATIVE UA LEUKOCYTE ESTERASE DIPSTICK (test code = LEUU) 25 Erickson/uL (Tra ce) uL NEGATIVE A UA WBC (test code = WBCU) 0-5 per HPF 0-5 UA RBC (test code = RBCU) 0-3 per HPF 0-5 UA EPITHELIAL CELLS (test code = EPIU) Few (2-5/hpf) per HPF Few UA BACTERIA (test code = BACU) MODERATE per HPF NONE A UA MUCUS (test code = MUCU) FEW per LPF NONE-FEW URINALYSIS W/O [id number] 17:31:00* Test Item Value Reference Range Interpretation Comments UA LEUKOCYTE ESTERASE W REFLEX (test code = LEUUR) 25 Erickson/uL (Trace ) NEGATIVE A URINALYSIS [id number] 17:21:00* Test Item Value Reference Range Interpretation Comments UA COLOR (test code = COLU) LIGHT YELLOW YELLOW UA APPEARANCE (test code = APPU) HAZY CLEAR A UA GLUCOSE DIPSTICK (test code = DGLUU) norm mg/dL NEGATIVE UA BILIRUBIN DIPSTICK (test code = BILU) NEGATIVE mg/dL NEGATIVE UA KETONE DIPSTICK (test code = KETU) neg mg/dL NEGATIVE UA SPECIFIC GRAVITY (test code = SGU) 1.010 1.001-1.035 UA BLOOD DIPSTICK (test code = PRISCILLA) 10 (Trace) Dariusz/uL NEGATIVE A UA PH DIPSTICK (test code = LEXI) 6.0 5.0-8.0 UA PROTEIN DIPSTICK (test code = PROU) 15 (TRACE) mg/dL Neg-15 A UA UROBILINIOGEN DIPSTICK (test code = URO) norm mg/dL 0.0-0.2 UA NITRITE DIPSTICK (test code = MIKE) NEGATIVE NEGATIVE UA LEUKOCYTE ESTERASE DIPSTICK (test code = LEUU) uL NEGA TIVE UA WBC (test code = WBCU) per HPF 0-5 UA RBC (test code = RBCU) per HPF 0-5 UA EPITHELIAL CELLS (test code = EPIU) per HPF Few UA BACTERIA (test code = BACU) per HPF NONE URINALYSIS W/O [id number] 17:21:00* Test Item Value Reference Range Interpretation Comments UA LEUKOCYTE ESTERASE W REFLEX (test code = LEUUR) NEG ATIVE URINALYSIS [id number] 17:21:00* Test Item Value Reference Range Interpretation Comments UA COLOR (test code = COLU) LIGHT YELLOW YELLOW UA APPEARANCE (test code = APPU) HAZY CLEAR A UA GLUCOSE DIPSTICK (test code = DGLUU) norm mg/dL NEGATIVE UA BILIRUBIN DIPSTICK (test code = BILU) NEGATIVE mg/dL NEGATIVE UA KETONE DIPSTICK (test code = KETU) neg mg/dL NEGATIVE UA SPECIFIC GRAVITY (test code = SGU) 1.010 1.001-1.035 UA BLOOD DIPSTICK (test code = PRISCILLA) 10 (Trace) Dariusz/uL NEGATIVE A UA PH DIPSTICK (test code = LEXI) 6.0 5.0-8.0 UA PROTEIN DIPSTICK (test code = PROU) 15 (TRACE) mg/dL Neg-15 A UA UROBILINIOGEN DIPSTICK (test code = URO) norm mg/dL 0.0-0.2 UA NITRITE DIPSTICK (test code = MIKE) NEGATIVE NEGATIVE UA LEUKOCYTE ESTERASE DIPSTICK (test code = LEUU) uL NEGA TIVE UA WBC (test code = WBCU) per HPF 0-5 UA RBC (test code = RBCU) per HPF 0-5 UA EPITHELIAL CELLS (test code = EPIU) per HPF Few UA BACTERIA (test code = BACU) per HPF NONE URINALYSIS W/O [id number] 17:21:00* Test Item Value Reference Range Interpretation Comments UA LEUKOCYTE ESTERASE W REFLEX (test code = LEUUR) NEG ATIVE - CT HEAD/BRAIN W/O [id number] 16:29:00 Name: MARCO HERRERA [facility] : 1945 Age/S: 72 / F [address] [facility] Unit #: [id number] Loc: [place] [address] Phys: Jaquan Lira MD Acct: [id number] Dis Date: Status: REG ER PHONE #: [phone] Exam Date: 08/16/2018 1621 FAX #: [phone] Reason: dizzy EXAMS: CPT CODE: [id number] CT HEAD/BRAIN W/O CONT [id number] REASON FOR EXAM: dizzy EXAM ORDER DATE: 08/16/2018 3:47 PM Ordering M.D.: Jaquan Lira MD PROCEDURE: - CT HEAD/BRAIN W/O CONT COMPARISON: FINDINGS: CT images of the brain were obtained without IV contrast. Dose modulation, iterative reconstruction, and/or weight based adjustment of the MA/KV was utilized to reduce the radiation dose to as low as reasonably achievable. The brain parenchyma is within normal limits. The tejeda-white matter delineation is unremarkable. The ventricles, cisterns, and sulci are unremarkable. There is no evidence of hemorrhage, mass, mass effect. There is no evidence of acute or old infarct. The calvarium is intact. IMPRESSION: Unremarkable brain. at 1629 Reported and signed by: Kei Melendrez M.D. CC: Fredi Ocampo; Jaquan Lira MD Technologist:Estephania Blanca CTDI: DLP: Trnscb Date/Time: 08/16/2018 (1629) [email or web address] Orig Print D/T: S: 08/16/2018 (1230) PAGE 1 Signed Report - XR CHEST 1 [id number] 16:27:00 Name: MARCO HERRERA [facility] : 1945 Age/S:72 /F [address] [facility] Unit#:[id number] Loc: [place] [address] Phys: Jaquan Lira MD Dis Date: PHONE #: [phone] Status: REG ER FAX #: [phone] Exam Date: 08/16/2018 Reason: SOB EXAMS: CPT CODE: [id number] XR CHEST 1 V [id number] REASON FOR EXAM: SOB EXAM ORDER DATE: 08/16/2018 3:47 PM Ordering Gia: Jaquan Lira MD PROCEDURE: - XR CHEST 1 V COMPARISON: FINDINGS: Portable AP frontal view of the chest obtained at 4:17 PM shows diffuse as base opacity. There is no evidence of effusion. The heart size is minimally enlarged. Pulmonary vasculatures are minimally congested. IMPRESSION: Minimal cardiomegaly and pulmonary venous congestion with atelectasis in the bases at 1627 Reported and signed by: Kei Melendrez M.D. CC: Fredi Ocampo; Jaquan Lira MD Technologist: Estephania Blanca Trnscrpt Data: 08/16/2018 (0587) Kinjal.[email or web address] Orig Print D/T: S: 08/16/2018 (1630) PAGE 1 Signed Report B-TYPE NATRIURETIC [id number] 16:13:00* Test Item Value Reference Range Interpretation Comments B-TYPE NATRIURETIC PEPTIDE (test code = BNP) 146 pg/mL 0-100 H COMPREHENSIVE METABOLIC [id number] 16:12:00* Test Item Value Reference Range Interpretation Comments SODIUM (test code = NA) 139 mmol/L 136-145 N POTASSIUM (test code = K) 4.4 mmol/L 3.5-5.1 N CHLORIDE (test code = CL) 102 mmol/L 101-109 N CARBON DIOXIDE (test code = CO2) 26.8 mmol/L 21-32 N ANION GAP (test code = GAP) 15 mmol/L 10-20 N GLUCOSE (test code = GLU) 259 mg/dL 74-106 H BLOOD UREA NITROGEN (test code = BUN) 16 mg/dL 3-21 N CREATININE (test code = CREAT) 1.01 mg/dL 0.55-1.3 N BUN/CREATININE RATIO (test code = BUN/CREA) 15.8 10-20 N TOTAL PROTEIN (test code = PROT) 7.1 g/dL 6.5-8.4 N ALBUMIN (test code = ALB) 3.7 g/dL 3.4-4.8 N GLOBULIN (test code = GLOB) 3.4 G/DL 1-10 N ALBUMIN/GLOBULIN RATIO (test code = A/G) 1.09 RATIO 0.75-1.50 N CALCIUM (test code = CA) 9.8 mg/dL 8.4-10.2 N BILIRUBIN TOTAL (test code = BILT) 1.10 mg/dL 0.0-1.0 H SGOT/AST (test code = AST) 19 U/L 6-32 N SGPT/ALT (test code = ALT) 24 U/L 12-78 N N ote: Change in REFERENCE RANGE due to new reagent method. ALKALINE PHOSPHATASE TOTAL (test code = ALKP) 141 U/L 38-126 H [id number] 16:12:00* Test Item Value Reference Range Interpretation Comments TROPONIN-I (test code = TROPI) <0.015 ng/mL 0.00-0.056 N COMPREHENSIVE METABOLIC [id number] 16:08:00* Test Item Value Reference Range Interpretation Comments SODIUM (test code = NA) 139 mmol/L 136-145 N POTASSIUM (test code = K) 4.4 mmol/L 3.5-5.1 N CHLORIDE (test code = CL) 102 mmol/L 101-109 N CARBON DIOXIDE (test code = CO2) 26.8 mmol/L 21-32 N ANION GAP (test code = GAP) 15 mmol/L 10-20 N GLUCOSE (test code = GLU) 259 mg/dL 74-106 H BLOOD UREA NITROGEN (test code = BUN) 16 mg/dL 3-21 N CREATININE (test code = CREAT) 1.01 mg/dL 0.55-1.3 N BUN/CREATININE RATIO (test code = BUN/CREA) 15.8 10-20 N TOTAL PROTEIN (test code = PROT) gram/dL 6.4-8.2 ALBUMIN (test code = ALB) g/dL 3.4-5.0 GLOBULIN (test code = GLOB) g/dL 2.7-4.2 ALBUMIN/GLOBULIN RATIO (test code = A/G) 0.75-1.50 CALCIUM (test code = CA) 9.8 mg/dL 8.4-10.2 N BILIRUBIN TOTAL (test code = BILT) mg/dL 0.2-1.2 SGOT/AST (test code = AST) IUnit/L 15-37 SGPT/ALT (test code = ALT) U/L 10-69 ALKALINE PHOSPHATASE TOTAL (test code = ALKP) IUnit/L 45-117 [id number] 16:08:00* Test Item Value Reference Range Interpretation Comments TROPONIN-I (test code = TROPI) ng/mL 0-0.045 CBC W/AUTO [id number] 15:57:00* Test Item Value Reference Range Interpretation Comments WHITE BLOOD CELL (test code = WBC) 6.6 K/mm3 4.5-12.5 N RED BLOOD CELL (test code = RBC) 4.00 mill/mm3 3.7-5.2 N HEMOGLOBIN (test code = HGB) 10.3 gram/dL 11.5-15.5 L HEMATOCRIT (test code = HCT) 33.7 % 36.0-46.0 L MEAN CELL VOLUME (test code = MCV) 84.3 fL 80-98 N MEAN CELL HGB (test code = MCH) 25.8 picogram 27.0-33.0 L MEAN CELL HGB CONCETRATION (test code = MCHC) 30.6 gram/dL 33.0-36. 0 L RED CELL DISTRIBUTION WIDTH (test code = RDW) 15.0 % 11.6-16. 2 N RED CELL DISTRIBUTION WIDTH SD (test code = RDW-SD) 46.5 fL 37 .0-51.0 N PLATELET COUNT (test code = PLT) 186 K/mm3 150-450 N MEAN PLATELET VOLUME (test code = MPV) 10.3 fL 6.7-11.0 N NEUTROPHIL % (test code = NT%) 81.4 % 39.0-69.0 H LYMPHOCYTE % (test code = LY%) 13.2 % 25.0-55.0 L MONOCYTE % (test code = MO%) 3.7 % 0.0-10.0 N EOSINOPHIL % (test code = EO%) 0.8 % 0.0-5.0 N BASOPHIL % (test code = BA%) 0.3 % 0.0-1.0 N NEUTROPHIL # (test code = NT#) 5.35 K/mm3 1.8-7.7 N LYMPHOCYTE # (test code = LY#) 0.87 K/mm3 1.0-5.0 L MONOCYTE # (test code = MO#) 0.24 K/mm3 0-0.8 N EOSINOPHIL # (test code = EO#) 0.05 K/mm3 0.0-0.5 N BASOPHIL # (test code = BA#) 0.02 K/mm3 0.0-0.2 N MANUAL DIFF REQUIRED (test code = MDIFF) NO
--- OUTSIDE RECORDS SUMMARY | 2019-11-19 18:17 | XMS REPORT | Continuity of Care Document ---
Author Author [facility] [employer], MARCO SPANN [facility] [employer] Information Exchange Address Unknown Phone Unavailable Care Team Providers Care Server Security Administrator Name Role Phone [facility] [employer] Unavailable Un available Problems Problem Status Onset Date Classification Date Reported Comments Source Morbid (severe) obesity due to excess calories Active Problem 2018 Samuel Hernandez Varicose veins of bilateral lower extrem ities with other complications Active Diag nosis 2018 Samuel Hernandez Type 2 diabetes mellitus with unspecified complication s Active Diagnosis 2018 Samuel Hernandez Pure hypercholesterolemia Acti ve Diagnosis 0 2018 Samuel Hernnadez Abnormal electrocardiogram Act edelmira Diagnosis 0 2018 Samuel Hernandez Type II or unspecified type diabetes addie litus with unspecified complication, not stated as uncontrolled Active Problem 2018 Samuel Hernandez Essential (primary) hypertension Active Diagnosis 0 2018 Samuel Hernandez Abnormal gait Active Problem 2018 Samuel Hernandez Stented coronary artery Active Diagnosis 2018 Samuel Hernandez 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 Problem 2018 Samuel Hernandez Atherosclerosis of cheesh-na coronary arter y of cheesh-na heart without angina pectoris Active Diagnosis 2018 Samuel Hernandez 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 Active Problem 01/02/2017 Samuel Hernandez Morbid obesity Active Problem 01/02/2017 Samuel Hernandez CAD (coronary artery disease) Active Problem Samuel Hernandez DJD (degenerative joint disease) Active Problem Samuel Hernandez Venous insufficiency Active Problem 2018 Samuel Hernandez Essential hypertension Active Problem 2018 Samuel Hernandez Hypothyroidism Active Problem 2018 Samuel Hernandez Leg pain Active Problem 2018 Samuel Hernandez Atherosclerotic heart disease of cheesh-na coronary artery with angina pectoris Active Problem 01/02/2017 Samuel Hernandez Carotid bruit Active Problem 01/02/2017 Samuel Hernandez Pure hypercholesterolemia Acti ve Problem Samuel Hernandez Lower extremity edema Active Diagnosis 2018 Samuel Hernandez Shortness of breath Active Diagnosis 2018 Samuel Hernandez Anginal equivalent Active Diagnosis 2018 Samuel Hernandez Bilateral enlargement of atria Active Problem Samuel Hernandez Patient unable to exercise Act edelmira Problem Samuel Hernandez Rheumatic mitral valve disease Active Problem Samuel Hernandez Atherosclerosis of che[place] coronary arter y of [place] heart with angina pectoris Active Problem 2018 Samuel Hernandez Medications Medication Details Route Status Patient Instructions Ordering Provider Order Date Source Gabapentin not defined Orally Active 100 MG Orally David Bang maddisonglen Hernandez Levothyroxine Sodium 1 tablet Orally Active 112 MCG Orally Once a day David Hernandez Sertraline HCl 1 tablet Orally Active 100 MG Orally Once a da y David Hernandez Lasix 1 tablet Orally Active 20 MG Orally Once a day David Bang maddisonglen Hernandez Donepezil Hydrochloride 1 tabl et at bedtime Orally Active 5 MG Orally Once a day David Hernandez Metformin HCl 1 tablet Orally Active 500 mg Orally Twice a d ay David Hernandez Losartan Potassium 1 tablet Orally Active 100 mg Orally twice a day (bid) David Hernandez Atorvastatin Calcium 1 tablet Orally Active 40 mg Orally Once a day David Hernandez Clopidogrel Bisulfate 1 tablet Orally Active 75 mg Orally Once a day David Hernandez Vitamin D High Potency 1 capsu le Orally Active 1000 UNIT Orally Once a day David Hernandez Glimepiride 1 tablet Orally Active 2 MG Orally twice a day (bid) David Hernandez Pantoprazole Sodium 1 tablet Orally Active 40 MG Orally Once a day David Hernandez Famotidine 1 tablet at bedtime Orally Active 20 MG Orally Once a day David Beti David Metoprolol Succinate 1 tablet Orally Active 25 MG Orally [facility] Beti Amy [place] Lasix 1 tablet Orally Active 20 MG [facility] Sertraline HCl 1 tablet Orally Active 100 MG Orally Once a da y Antwan Beti Amy Hernandez Famotidine 1 tablet at bedtime Orally Active 20 MG Orally [facility] Antwanpaula Atorvastatin Calcium 1 tablet Orally Active 40 mg Orally [facility] An[facility] Metformin HCl 1 tablet Orally Active 500 mg Orally Twice a d ay Antwanpaula Bang Amy Mon[place] Losartan Potassium 1 tablet Orally Active 100 mg Orally twice a day (bid) [facility] Beti Amy [place] Vitamin D High Potency 1 capsu le Orally Active 1000 UNIT Orally Once a day [facility] Beti Amy [place] Pantoprazole Sodium 1 tablet Orally Active 40 MG Orally Once a day [facility] Antwanpaula Levothyroxine Sodium 1 tablet Orally Active 112 MCG Orally Once a day [facility] Antwan Clopidogrel Bisulfate 1 tablet Orally Active 75 mg Orally Once a day Antwan Beti Antwanpaula Glimepiride 1 tablet Orally Active 2 MG Orally twice a day (bid) [facility] Beti Amy [place] Aspirin 1 tablet Orally Active 325 MG Orally Once a da y [facility] Beti David Potassium Chloride 1 capsule Orally Active 10 MEQ Orally Once a day [facility] Amy Mon[place]ula Omprezole 1 tablet orally Active 20 mg orally twice a da y (bid) [facility] Amy Mon[place] Furosemide 1 tablet orally Active 20 mg orally PRN [facility] Antwanpaula Donepezil HCl 1 tablet at bedt janet Orally Active 5 MG Orally Once a [facility] Amy Moncad[place]ula Metoprolol Succinate 1 tablet Orally Active 25 MG Orally [facility] a [facility] Amy Moncad[place]ula Allergies, Adverse Reactions, Alerts Substance Category Reaction Severity Reaction type Status Date Reported Comments Source Morphine Adverse Reaction Hives Adverse Reaction Active 05/28/2017 [facility] Amy Hernandez sulfa Adverse Reaction Hives Adverse Reaction Active 05/28/2017 [facility] David Immunizations No Data Provided for This Section Results No Data Provided for This Section Pathology Reports No Data Provided for This Section Diagnostic Reports No Data Provided for This Section Consultation Notes No Data Provided for This Section Discharge Summaries No Data Provided for This Section History and Physicals No Data Provided for This Section Vital Signs Vital Sign Value Date Comments Source Weight 243 06/13/2017 Mohamed O Jeroudi Height 62 0 06/13/2017 Mohamed O Jeroudi Temperature Oral (F) 98.4 F 06/13/2017 Mohamed O Jeroudi Heart Rate 69 06/13/2017 Mohamed O Jeroudi Diastolic (mm Hg) 80 06/13/2017 Mohamed O Jeroudi Systolic (mm Hg) 120 06/13/2017 Mohamed O Jeroudi Weight 253 05/28/2017 Mohamed O Jeroudi Height 62 0 05/28/2017 Mohamed O Jeroudi Temperature Oral (F) 97.6 F 05/28/2017 Mohamed O Jeroudi Heart Rate 69 05/28/2017 Mohamed O Jeroudi Diastolic (mm Hg) 60 05/28/2017 Mohamed O Jeroudi Systolic (mm Hg) 142 05/28/2017 Mohamed O Jeroudi Weight 241 12/25/2016 Mohamed O Jeroudi Height 62 1 02/25/2016 Mohamed O Jeroudi Temperature Oral (F) 97.1 F 12/25/2016 Mohamed O Jeroudi Heart Rate 67 12/25/2016 Mohamed O Jeroudi Diastolic (mm Hg) 80 12/25/2016 Mohamed O Jeroudi Systolic (mm Hg) 130 12/25/2016 Mohamed O Jeroudi Weight 241 06/12/2016 Mohamed O Jeroudi Height 62 0 06/12/2016 Mohamed O Jeroudi Temperature Oral (F) 97.6 F 06/12/2016 Mohamed O Jeroudi Heart Rate 73 06/12/2016 Mohamed O Jeroudi Diastolic (mm Hg) 70 06/12/2016 Mohamed O Jeroudi Systolic (mm Hg) 132 06/12/2016 Mohamed O Jeroudi Weight 235 12/02/2015 Mohamed O Jeroudi Height 62 1 Mohamed O Jeroudi Temperature Oral (F) 97.1 F 12/02/2015 Mohamed O Jeroudi Heart Rate 70 12/02/2015 Mohamed O Jeroudi Diastolic (mm Hg) 90 12/02/2015 Mohamed O Jeroudi Systolic (mm Hg) 140 12/02/2015 Mohamed O Jeroudi Weight 234 10/06/2015 Mohamed O Jeroudi Height 62 0 10/06/2015 Mohamed O Jeroudi Temperature Oral (F) 97.1 F 10/06/2015 Mohamed O Jeroudi Heart Rate 70 10/06/2015 Mohamed O Jeroudi Diastolic (mm Hg) 72 10/06/2015 Mohamed O Jeroudi Systolic (mm Hg) 140 10/06/2015 Mohamed O Jeroudi Weight 231 09/07/2015 Mohamed O Jeroudi Height 62 0 09/07/2015 Mohamed O Jeroudi Temperature Oral (F) 96.7 F 09/07/2015 Mohamed O Jeroudi Heart Rate 70 09/07/2015 Mohamed O Jeroudi Diastolic (mm Hg) 80 09/07/2015 Mohamed O Jeroudi Systolic (mm Hg) 132 09/07/2015 Mohamed O Jeroudi Weight 230 08/25/2015 Mohamed O Jeroudi Height 62 0 08/25/2015 Mohamed O Jeroudi Temperature Oral (F) 97.2 F 08/25/2015 Mohamed O Jeroudi Heart Rate 71 08/25/2015 Mohamed O Jeroudi Diastolic (mm Hg) 70 08/25/2015 Mohamed O Jeroudi Systolic (mm Hg) 118 08/25/2015 Mohamed O Jeroudi Weight 235 02/17/2015 Mohamed O Jeroudi Height 62 0 02/17/2015 Mohamed O Jeroudi Temperature Oral (F) 98.0 F 02/17/2015 Mohamed O Jeroudi Heart Rate 74 02/17/2015 Mohamed O Jeroudi Diastolic (mm Hg) 70 02/17/2015 Mohamed O Jeroudi Systolic (mm Hg) 130 02/17/2015 Mohamed O Jeroudi Encounters No Data Provided for This Section Procedures No Data Provided for This Section Assessment and Plan No Data Provided for This Section Plan of Care No Data Provided for This Section Social History No Data Provided for This Section Family History No Data Provided for This Section Advance Directives No Data Provided for This Section Functional Status No Data Provided for This Section
--- NOTE | 2019-11-19 19:59 | Diagnostic Imaging Report ---
EXAM: CT Abdomen and Pelvis WITHOUT contrast INDICATION: Abdominal distention and jaundice. COMPARISON: None. TECHNIQUE: Abdomen and pelvis were scanned utilizing a multidetector helical scanner from the lung base to the pubic symphysis without administration of IV contrast. Absence of intravenous contrast decreases sensitivity for detection of focal lesions and vascular pathology. Coronal and sagittal reformations were obtained. Routine protocol was performed. IV CONTRAST: None ORAL CONTRAST: None COMPLICATIONS: None RADIATION DOSE: Total DLP: 796 mGy*cm Estimated effective dose: (DLP x 0.015 x size factor) mSv CTDIvol has been reviewed. It is below the limits set by the Radiation Protocol Committee (RPC). Dose modulation, iterative reconstruction, and/or weight based adjustment of the mA/kV was utilized to reduce the radiation dose to as low as reasonably achievable. FINDINGS: LINES and TUBES: None. LOWER THORAX: The partially imaged base of the heart demonstrates atherosclerotic calcification of the coronary vessels. HEPATOBILIARY: No focal hepatic lesions. There is intra- and extra- hepatic biliary dilation. GALLBLADDER: No radio-opaque stones or sludge. No wall thickening. SPLEEN: No splenomegaly. PANCREAS: No focal masses or ductal dilatation. ADRENALS: There is a 2.1 x 1.4 cm left adrenal adenoma. The right adrenal gland is normal. KIDNEYS/URETERS: The bilateral kidneys appear atrophic which can be related to chronic medical renal disease. No hydronephrosis. No cystic or solid mass lesions. No stones. GI TRACT: No abnormal distention, wall thickening, or evidence of bowel obstruction. Appendix is normal. PELVIC ORGANS/BLADDER: Evaluation of pelvic organs is limited by streak artifact from right hip hardware. There is a cystic well-circumscribed mass in the pelvis which measures approximately 5.0 x 1.4 cm (series 2 image 69). LYMPH NODES: No lymphadenopathy. VESSELS: Scattered mild arterial vascular calcifications. PERITONEUM / RETROPERITONEUM: No free air or fluid. 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 No radiographic evidence of hardware complication. There are degenerative changes in the spine. No suspicious osteolytic or osteoblastic lesions SOFT TISSUES: There are granulomatous changes of the posterior soft tissues, likely from prior injections. IMPRESSION: 1. Intra- and extra- hepatic biliary dilation which can be due to post cholecystectomy resevoir effect. However, there are are are no prior images for direct comparison. Patient may benefit from HIDA scan to evaluate functional excretion within the biliary system or MRCP for retained extrahepatic ductal stones. 2. Cystic mass in the pelvis which measures up to 5 cm. Recommend further evaluation of this mass with dedicated pelvic ultrasound and TERMITE [employer] TECHNICIAN consultation as this is an abnormal finding in patient of this age group. Signed by: Chino Walters MD on 11/19/2019 7:56 PM
[2019-11-19] MEDS ORDERED: DEXTROSE 50% SYRINGE 50 ML IV PRN (20:15)
[2019-11-19] MEDS ORDERED: ONDANSETRON HCL INJ 2MG/ML 2ML 2 MG/ML VIAL IV PRN (20:15)
--- OUTSIDE RECORDS SUMMARY | 2019-11-19 20:23 | XMS REPORT | Continuity of Care Document ---
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 Active Problem [...] 2018 Samuel Hernandez Atherosclerotic heart disease of [place] coronary artery with angina pectoris Active Problem [...] disease Active Problem Samuel Hernandez 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 Active Problem 2018 [...] Active 25 MG Orally [facility] [place] Lasix 1 tablet Orally Active 20 MG [facility] Sertraline HCl 1 tablet Orally Active 100 MG Orally Once a da y Antwan Beti Amy Hernandez Famotidine 1 tablet at bedtime Orally Active 20 MG Orally [facility] Atorvastatin Calcium 1 tablet Orally Active 40 mg Orally [facility] Metformin HCl 1 tablet Orally Active 500 mg Orally Twice a d ay Antw[place]ula Bang Amy [place] Losartan Potassium 1 tablet Orally Active 100 mg Orally twice a day (bid) [facility] Amy [place] Vitamin D High Potency 1 capsu le Orally Active 1000 UNIT Orally Once a day [facility] Amy [place] Pantoprazole Sodium 1 tablet Orally Active 40 MG Orally [facility] Levothyroxine Sodium 1 tablet Orally Active 112 MCG Orally [facility] Clopidogrel Bisulfate 1 tablet Orally Active 75 mg Orally Once a day Antwan Beti Antwanpaula Glimepiride 1 tablet Orally Active 2 MG Orally twice a day (bid) [facility] Amy [place] Aspirin 1 tablet Orally Active 325 MG Orally Once a da y [facility] David Potassium Chloride 1 capsule Orally Active 10 MEQ Orally [facility] Amy [place] Omprezole 1 tablet orally Active 20 mg orally twice a da y (bid) [facility] Amy [place] Furosemide 1 tablet orally Active 20 mg orally PRN [facility] Donepezil HCl 1 tablet at bedt janet Orally Active 5 MG Orally [facility] Amy [place] Metoprolol Succinate 1 tablet Orally Active 25 MG Orally [facility] Amy [place] Allergies, Adverse Reactions, Alerts Substance Category Reaction Severity Reaction type Status Date Reported Comments Source Morphine Adverse Reaction Hives Adverse Reaction Active 05/28/2017 [facility] Amy Hernandez sulfa Adverse Reaction Hives Adverse Reaction Active 05/28/2017 [facility] David Immunizations No Data Provided for This [...]
--- OUTSIDE RECORDS SUMMARY | 2019-11-19 20:23 | XMS REPORT | Continuity of Care Document ---
Author Author [facility] t Organization [facility] Address [address] [place] [address] Phone Unavailable Care Team Providers Care [place] Hand Name Role Phone Cindy Horvath Unavailable Payers Payer Name Policy Type Policy Number Effective Date Expiration Date S ource Problems Condition Name Condition Details Condition Category Status Onset Date Resolution Date Last Treatment Date Treating Clinician Comments Source Morbid (severe) obesity due to excess calories Morbid (severe) obesity due to excess calories Active Problem 2018 Samuel Moncadati Problem Active 2018 02:46:38 Leandro Oakley 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 Varicose veins of bilateral lower extremities with other complications Active Diagnosis 2018 Betimaddison Amy Hernandez Diagnosis Active 2018 02:46:38 Paty Oakley Type 2 diabetes mellitus with unspecified complication s Type 2 diabetes mellitus with unspecified complications Active Diagnosis 2018 Samuel Hernandez Diagnosis Active 2018 02:46:3 8 Paty Oakley Pure hypercholesterolemia Pure hypercholesterolemia Active Diagnosis 2018 Betimaddison Amy Hernandez Diagnosis Active 2018 02:46:38 Paty Oakley Abnormal electrocardiogram Abn ormal electrocardiogram Active Diagnosis 2018 Betimaddison Amy Hernandez Diagnosis Active 2018 02:46:38 Paty Oakley Essential (primary) hypertension Essential (primary) hypertension Active Diagnosis 2018 Samuel Hernandez Diagnosis Active 2018 02:46:38 Paty Oakley Abnormal gait Abno rmal gait Active Problem 2018 Mohamed Amy Moncadaewadi Problem Active 2018 02:46:38 Paty Laraann Stented coronary artery Sten marilee coronary artery Active Diagnosis 2018 Samuel Hernandez Diagnosis Active 2018 02:46:38 [facility] Adin 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 Problem 2018 Samuel Hernandez Problem Active 2018 02:46:38 [facility] Atherosclerosis of koi coronary arter y of koi heart without angina pectoris Atherosclerosis of koi coronary artery of koi heart without angina pectoris Active Diagnosis 2018 Samuel Hernandez Diagnosis Active 2018 02:46:38 [facility] Adin Coronary artery disease involving plaza ry bypass graft of koi heart with unstable angina pectoris Coronary artery disease involving coronary bypass graft of koi heart with unstable angina pectoris Active Problem 01/02/2017 Samuel Hernandez Problem Active 2017-01-02 03:45:55 [facility] Adin DJD (degenerative joint disease) DJD (degenerative joint disease) Active Problem 2018 Samuel Hernandez Problem Active 2018 02:46:38 [facility] Venous insufficiency Veno us insufficiency Active Problem 2018 Samuel Hernandez Problem Active 2018 02:46:38 [facility] Hypothyroidism Hypo thyroidism Active Problem 2018 Samuel Hernandez Problem Active 2018 02:46:38 [facility] Leg pain Leg pain Active Problem 2018 Samuel Hernandez Problem Active 2018 02:46:38 Leandroamy Oakley Carotid bruit Suazo tid bruit Active Problem 01/02/2017 Samuel Hernandez Problem Active 2017-01-02 03:45:55 [facility] Pure hypercholesterolemia Pure hypercholesterolemia Active Problem 01/02/2017 Samuel Hernandez Problem Active 29-12-20 03:45:55 [facility] Lower extremity edema Lowe r extremity edema Active Diagnosis 2018 Samuel Hernandez Diagnosis Active 2018 02:46:38 [facility] Shortness of breath Shor tness of breath Active Diagnosis 2018 Samuel Moncadati Diagnosis Active 2018 02:46:3 8 [facility] Anginal equivalent Janki nal equivalent Active Diagnosis 2018 Samuel Hernandez Diagnosis Active 2018 02:46:3 8 [facility] 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 Active Problem 2018 Samuel Hernandez Problem Active 2018 02:46:38 Paty Oakley Patient unable to exercise Pat ient unable to exercise Active Problem 2018 Samuel Hernandez Problem Active 2018 02:46:38 [facility] 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 Active Problem 2018 Samuel Hernandez Problem Active 2018 02:46:38 [facility] Atherosclerosis of koi coronary artery of koi he art with angina pectoris Atherosclerosis of koi coronary artery of koi heart with angina pectoris Active Problem 2018 Samuel Hernandez Problem A ctive 2018 02:46:38 [facility] Her alvarado Allergies, Adverse Reactions, Alerts Allergy Name Allergy Type Status Severity Reaction(s) Onset Date Inacti ve Date Treating Clinician Comments Source acetaminophen DA Active MO 2018-08-18 00:00:00 [facility] sulfa sulfa Active Hives 2017-05-28 00:00:00 [facility] Sulfa (Sulfonamide Antibiotics) DA Active CO 2013-01-09 00 :00:00 [facility] morphine DA Active CO 2013-01-09 00:00:00 [facility] Medications Ordered Medication Name Filled Medication Name Start Date Stop Da te Current Medication? Ordering Clinician Indication Dosage Frequency Signature (SIG) Comments Components Source Levothyroxine Sodium 2018 02:46:38 Yes Ahmad Jeroudi [address] [facility] Sertraline HCl 2018 02:46:38 Yes Ahmad Jeroudi [address] [facility] Lasix 2018 02:46:38 Yes Ahmad Jeroudi 1 tab let [facility] Metformin HCl 2018 02:46:38 Yes Ahmad Jeroudi [address] [facility] Losartan Potassium 2018 02:46:38 Yes Ahmad Jeroudi 1 [address] [facility] Atorvastatin Calcium 2018 02:46:38 Yes Ahmad Jeroudi 1 [address] [facility] Clopidogrel Bisulfate 2018 02:46:38 Yes Ahmad Jeroudi [address] [facility] Vitamin D High Potency 2018 02:46:38 Yes Ahmad Antwan oudi [address] [facility] Glimepiride 2018 02:46:38 Yes Ahmad Jeroudi [address] [facility] Pantoprazole Sodium 2018 02:46:38 Yes Ahmad Jeroudi [address] [facility] Famotidine 2018 02:46:38 Yes Ahmad Jeroudi 1 tablet at bedtime [facility] Donepezil HCl 2018 02:46:38 Yes Ahmad Jeroudi 1 tablet at bedtime [facility] Metoprolol Succinate 2018 02:46:38 Yes Ahmad Jeroudi [address] [facility] Gabapentin 2017-01-02 03:45:55 Yes Samuel Moncadaoudi not defined [facility] Donepezil Hydrochloride 2017-01-02 03:45:55 Yes Samuel Moncadaoudi 1 tablet at bedtime [facility] Metoprolol Succinate 2017-01-02 03:45:55 Yes Samuel Moncadaoudi [address] [facility] Lasix 2016-09-23 02:46:36 Yes Samuel Moncadaoudi [address] [facility] Sertraline HCl 2016-09-23 02:46:36 Yes Samuel Moncadaoudi [address] [facility] Famotidine 2016-09-23 02:46:36 Yes Samuel Moncadaoudi 1 tablet at bedtime [facility] Atorvastatin Calcium 2016-09-23 02:46:36 Yes Samuel Moncadaoudi [address] [facility] Metformin HCl 2016-09-23 02:46:36 Yes Samuel Moncaadoudi [address] [facility] Losartan Potassium 2016-09-23 02:46:36 Yes Betiamed Jeroudi [address] [facility] Vitamin D High Potency 2016-09-23 02:46:36 Yes Samuel ruffoudi [address] [facility] Pantoprazole Sodium 2016-09-23 02:46:36 Yes Samuel Jeroudi [address] [facility] Levothyroxine Sodium 2016-09-23 02:46:36 Yes Mohamed Jeroudi [address] [facility] Clopidogrel Bisulfate 2016-09-23 02:46:36 Yes Samuel Cook roudi [address] [facility] Glimepiride 2016-09-23 02:46:36 Yes Samuel Hernandez 1 tablet [facility] Aspirin 2016-09-23 02:46:32 Yes Samuel Hernandez 1 tablet [facility] Potassium Chloride 2016-09-23 02:46:32 Yes Samuel Hernandez 1 capsule [facility] Omprezole 2016-09-23 02:46:32 Yes Samuel Moncadaoudi 1 tablet [facility] Furosemide 2016-09-23 02:46:32 Yes Samuel Floresdi 1 tablet [facility] Vital Signs Vital Name Observation Time Observation Value Comments Source Weight 2017-06-13 19:00:00 [facility] Height 2017-06-13 19:00:00 [facility] Temperature Oral (F) 2017-06-13 19:00:00 98.4 F [facility] Heart Rate 2017-06-13 19:00:00 [facility] Diastolic (mm Hg) 2017-06-13 19:00:00 [facility] [place] Systolic (mm Hg) 2017-06-13 19:00:00 [facility] [place] Weight 2017-05-28 20:00:00 [facility] Height 2017-05-28 20:00:00 [facility] Temperature Oral (F) 2017-05-28 20:00:00 97.6 F [facility] Heart Rate 2017-05-28 20:00:00 [facility] Diastolic (mm Hg) 2017-05-28 20:00:00 [facility] [place] Systolic (mm Hg) 2017-05-28 20:00:00 Leandro samy [facility] Weight 2016-12-25 20:30:00 [facility] Height 2016-12-25 20:30:00 [facility] Temperature Oral (F) 2016-12-25 20:30:00 97.1 F [facility] Heart Rate 2016-12-25 20:30:00 [facility] Diastolic (mm Hg) 2016-12-25 20:30:00 [facility] Systolic (mm Hg) 2016-12-25 20:30:00 Leandro samy [place] Weight 2016-06-12 18:00:00 [facility] Height 2016-06-12 18:00:00 [facility] Temperature Oral (F) 2016-06-12 18:00:00 97.6 F [facility] Heart Rate 2016-06-12 18:00:00 [facility] Diastolic (mm Hg) 2016-06-12 18:00:00 [facility] Systolic (mm Hg) 2016-06-12 18:00:00 Leandro [facility] Weight 2015-12-02 18:30:00 [facility] Height 2015-12-02 18:30:00 [facility] Temperature Oral (F) 2015-12-02 18:30:00 97.1 F [facility] Heart Rate 2015-12-02 18:30:00 [facility] Diastolic (mm Hg) 2015-12-02 18:30:00 [facility] Systolic (mm Hg) 2015-12-02 18:30:00 Leandro [facility] [place] Weight 2015-10-06 18:30:00 [facility] Height 2015-10-06 18:30:00 [facility] Temperature Oral (F) 2015-10-06 18:30:00 97.1 F [facility] Heart Rate 2015-10-06 18:30:00 [facility] Diastolic (mm Hg) 2015-10-06 18:30:00 [facility] [place] Systolic (mm Hg) 2015-10-06 18:30:00 [facility]andro [facility] [place] Weight 2015-09-07 19:00:00 [facility] Height 2015-09-07 19:00:00 [facility] Temperature Oral (F) 2015-09-07 19:00:00 96.7 F [facility] Heart Rate 2015-09-07 19:00:00 [facility] Diastolic (mm Hg) 2015-09-07 19:00:00 [facility] Systolic (mm Hg) 2015-09-07 19:00:00 Leandro [facility] Weight 2015-08-25 19:30:00 [facility] Height 2015-08-25 19:30:00 [facility] Temperature Oral (F) 2015-08-25 19:30:00 97.2 F [facility] Heart Rate 2015-08-25 19:30:00 [facility] Diastolic (mm Hg) 2015-08-25 19:30:00 [facility] [place] Systolic (mm Hg) 2015-08-25 19:30:00 Leandro rial [facility] Weight 2015-02-17 19:00:00 [facility] Height 2015-02-17 19:00:00 [facility] Temperature Oral (F) 2015-02-17 19:00:00 98.0 F [facility] Heart Rate 2015-02-17 19:00:00 [facility] Diastolic (mm Hg) 2015-02-17 19:00:00 [facility] [place] Systolic (mm Hg) 2015-02-17 19:00:00 Leandro rial [place] Procedures This patient has no known procedures. Encounters Start Date/Time End Date/Time Encounter [facility] ID Source 2017-06-13 14:00:00 2017-06-13 14:00:00 Outpatient Samuel Hernandez MD [place] [id number] [employer] 2017-05-28 15:00:00 2017-05-28 15:00:00 Outpatient Samuel Hernandez MD [place] [id number] [employer] 2016-12-25 14:30:00 2016-12-25 14:30:00 Outpatient Samuel Hernandez MD PA [id number] [employer] 2016-06-12 13:00:00 2016-06-12 13:00:00 Outpatient Samuel Hernandez MD PA [id number] [employer] 2015-12-02 13:30:00 2015-12-02 13:30:00 Outpatient Samuel Hernandez MD PA [id number] [employer] 2015-10-06 13:30:00 2015-10-06 13:30:00 Outpatient Samuel Hernandez MD PA [id number] [employer]Works 2015-09-07 14:00:00 2015-09-07 14:00:00 Outpatient Samuel Hernandez MD PA [id number] [employer] 2015-08-25 14:30:00 2015-08-25 14:30:00 Outpatient Samuel Hernandez MD PA [id number] [employer] 2015-02-17 14:00:00 2015-02-17 14:00:00 Outpatient Samuel Hernandez MD PA [id number] [employer] Results Test Description Test Time Test Comments Results Result Comments Source CT ABDOMEN/PELVIS WO 2019-11-19 19:34:00 [facility] [address] [address] Patient Name: MARCO HERRERA MR #: [id number] : 1945 Age/Sex: 74/F Req #: [id number] Adm Physician: Ordered by: Hiram Horvath MD Report #: [id number] Location: ER Room/Bed: Procedure: [id number] CT/CT ABDOMEN/PELVIS WO Exam Date: 11/19/19 Exam Time: 1830 REPORT STATUS: Signed EXAM: CT Abdomen and Pelvis WITHOUT contrast INDICATION: Abdominal distention and jaundice. COMPARISON: None. TECHNIQUE: Abdomen and pelvis were scanned utilizing a multidetector helical scanner from the lung base to the pubic symphysis without admi nistration of IV contrast. Absence of intravenous contrast decreases sensitivity for detection of focal lesions and vascular pathology. Coronal and sagittal reformations were obtained. Routine protocol was performed. IV CONTRAST: None ORAL CONTRAST: None COMPLICATIONS: None RADIATION DOSE: Total DLP: 796 mGy*cm Estimated effective dose: (DLP x 0.015 x size factor) mSv CTDIvol has been reviewed. It is below the limits set by the Radiation Protocol Committee (RPC). Dose modulation, iterative reconstruction, and/or weight based ad justment of the mA/kV was utilized to reduce the radiation dose to as low as reasonably achievable. FINDINGS: LINES and TUBES: None. LOWER THORAX: The partially imaged base of the heart demonstrates atherosclerotic calcification of the coronary vessels. HEPATOBILIARY: No focal hepatic lesions. There is intra- and extra- hepatic biliary dilation. GALLBLADDER: No radio-opaque stones or sludge. No wall thickening. SPLEEN: No splenomegaly. PANCREAS: No focal masses or ductal dilatation. ADRENALS: There is a 2.1 x 1.4 cm left adrenal adenoma. The right adrenal gland is normal. KIDNEYS/URETERS: The bilateral kidneys appear atrophic which can be related to chronic medical renal disease. No hydronephrosis. No cystic or solid mass lesions. No stones. GI TRACT: No abnormal distention, wall thickening, or evidence of bowel obstruction. Appendix is normal. PELVIC ORGANS/BLADDER: Evaluation of pelvic organs is limited by streak artifact from right hip hardware. There is a cystic well-circumscribed mass in the pelvis which measures approximately 5.0 x 1.4 cm (series 2 image 69). LYMPH NODES: No lymphadenopathy. VESSELS: Scattered mild arterial vascular calcifications. PERITONEUM / RETROPERITONEUM: No free air or fluid. 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 No radiographic evidence of hardware complication. There are degenerative changes in the spine. No suspicious osteolytic or osteoblastic lesions SOFT TISSUES: There are granulomatous changes of the posterior soft tissues, likely from prior injections. IMPRESSION: 1. Intra- and extra- hepatic biliary dilation which can be due to post cholecystectomy resevoir effect. However, there are are are no prior images for direct comparison. Patient may benefit from HIDA scan to evaluate functional excretion within the biliary system or MRCP for retained extrahepatic ductal s tones. 2. Cystic mass in the pelvis which measures up to 5 cm. Recommend further evaluation of this mass with dedicated pelvic ultrasound and DUST SAMPLER consultation as this is an abnormal finding in patient of this age group. Signed by: Shira Og MD on 11/19/2019 7:56 PM Dictated By: SHIRA OG MD 54 Transcribed By: DAYRON on 11/19/191955 COPY TO: HIRAM HORVATH MD GLUBED 2019-07-24 11:32:00 Test Item GLUBED (test code = GLUBED) 176 mg/dL 74-106 H Performed by certified pearl glue operator at [facility] [id number] 06:43:00* Test Item Value Reference Range Interpretation Comments GLUBED (test code = GLUBED) 147 mg/dL 74-106 H Performed by certified pearl glue operator at [facility] BASIC METABOLIC [id number] 05:43:00* Test Item Value Reference Range Interpretation [...] CA) 9.4 mg/dL 8.5-10.1 N BASIC METABOLIC [id number] 05:39:00* Test Item Value Reference Range Interpretation [...] code = CA) mg/dL 8.5-10.1 CBC W/AUTO [id number] 04:33:00* Test Item Value Reference Range Interpretation [...] DIFF REQUIRED (test code = MDIFF) NO [id number] 21:21:00* Test Item Value Reference Range Interpretation Comments GLUBED (test code = GLUBED) 211 mg/dL 74-106 H [facility]ified [facility]~ [id number] 16:36:00* Test Item Value Reference Range Interpretation Comments GLUBED (test code = GLUBED) 138 mg/dL 74-106 H Performed by certified pearl glue operator at [facility] [id number] 07:29:00* Test Item Value Reference Range Interpretation Comments GLUBED (test code = GLUBED) 156 mg/dL 74-106 H Performed by certified pearl glue operator at [facility] Novel Coronavirus 2019 [id number] 18:14:00* Test Item Value Reference Range Interpretation [...] due to change in reagent. COMPREHENSIVE METABOLIC [id number] 10:19:00* Test Item Value Reference Range Interpretation [...] code = ALKP) IUnit/L 45-117 CBC W/AUTO [id number] 09:54:00* Test Item Value Reference Range Interpretation [...] = MDIFF) NO - XR CHEST 2 [id number] 08:12:00 FAX: Fredi Joy MD [phone] [place]: O St: PRE FAX: Samuel Colvin [phone] Name: MARCO HERRERA [facility] : 1945 Age/S: 73/F [address] [facility] Unit #: [id number] Loc: [place] [address] Phys: Samuel Hernandez MD Acct: [id number] Dis Date: Status: PRE [facility] PHONE #: [phone] Exam Date: 07/18/2019 0803 FAX #: [phone] Reason: PRE OP EXAMS: CPT CODE: [id number] XR CHEST 2 V 14349 HISTORY: PRE OP TECHNIQUE: PA and lateral chest x-ray COMPARISON: 08/16/18 FINDINGS: No airspace consolidation or pleural effusion. Normal heart size. Thoracic aortic vascular calcification. Degenerative changes of the spine and shoulders. IMPRESSION: No radiographic evidence of acute cardiopulmonary process. LOCATION: LP at 0812 Reported and signed by: Xochitl Kramer D.O. CC: Fredi Ocampo; Samuel Hernandez MD Technologist: Shaniqua HURLEY(R) Trnscrd Date/Time/By: 07/17 (811) : By: [email or web address] Orig Print D/T: S: 07/18/2019 (9314) PAGE 1 Signed Report - MRI BRAIN W/O [id number] 18:12:00 FAX: Fredi Joy MD [phone] [place]: St: ADM FAX: Riky Hussein MD [phone] FAX: Rafal Richardson [phone] --------- Name: MARCO HERRERA [facility] : 1945 Age/S: 72/F [address] [facility] it #: [id number] Loc: [address] [place] [address] Phys: Rafal Richardson MD Acct: [id number] Dis Date: Status: ADM IN [facility] #: [phone] Exam Date: 08/18/2018 1743 FAX #: [phone] Reason: PERSISTENT DIZZINESS EXAMS: CPT CODE: [id number] MR I BRAIN W/O CONTRAST 66600 HISTORY: PERSI STENT DIZZINESS TECHNIQUE: Sagittal T1, [...] process. No mass or mass effect. at 1812 Reported and signed by: Xochitl Kramer D.O. CC: Fredi Ocampo; Riky Vasquez MD; Rafal Richardson Technologist: Renetta Song RT(R)(MR) Trnscrd Date/Time/By: 08/18/2018 (1811) : By: ramez [email or web address] Orig Print D/T: S: 08/18/2018 (1814) P AGE 1 Signed Report GLUBED 2018-08-18 16:44:00* Test Item Value Reference Range Interpretation Comments GLUBED (test code = GLUBED) 124 mg/dL 74-106 H Performed by certified pearl glue operator at [facility] [id number] 11:35:00* Test Item Value Reference Range Interpretation Comments GLUBED (test code = GLUBED) 281 mg/dL 74-106 H Performed by certified pearl glue operator at [facility] [id number] 07:15:00* Test Item Value Reference Range Interpretation Comments GLUBED (test code = GLUBED) 128 mg/dL 74-106 H Performed by certified pearl glue operator at [facility] [id number] 20:31:00* Test Item Value Reference Range Interpretation Comments GLUBED (test code = GLUBED) 125 mg/dL 74-106 H Performed by certified pearl glue operator at [facility] [id number] 16:49:00* Test Item Value Reference Range Interpretation Comments GLUBED (test code = GLUBED) 93 mg/dL 74-106 N Performed by certified pearl glue operator at [facility] - CT CHEST W/O [id number] 16:40:00 Name: MARCO HERRERA [facility] [place] : 1945 Age/S: 72 / F [address] [facility] Unit #: [id number] Loc: [place] [address] Phys: Rafal Richardson MD Acct: [id number] Dis Date: Status: ADM IN PHONE #: [phone] Exam Date: 08/17/2018 1635 FAX #: [phone] Reason: DIZZINESS/SOB EXAMS: CPT CODE: [id number] CT CHEST W/O CONTRAST 57573 REASON FOR EXAM: DIZZINESS/SOB EXAM ORDER DATE: 08/17/2018 2:30 PM Ordering M.DLesley: Rafal Barcenas MD PROCEDURE: - CT CHEST [...] CTDI: DLP: Trnscb Date/Time: 0 08/17/2018 (1640) t.SDR.VTL Orig Print D/T: S: 08/17/2018 (1643) PAGE 1 Signed Report [id number] 11:48:00* Test Item Value Reference Range Interpretation Comments GLUBED (test code = GLUBED) 129 mg/dL 74-106 H Performed by certified pearl glue operator at [facility] [id number] 08:18:00* Test Item Value Reference Range Interpretation Comments GLUBED (test code = GLUBED) 85 mg/dL 74-106 N Performed by certified pearl glue operator at [facility] [id number] 02:55:00* Test Item Value Reference Range Interpretation Comments GLYCOSYLATED HEMOGLOBIN (HA1C) (test code = GLYHGB) 6.8 % HbA1 4. 8-6.0 H ESTIMATED AVERAGE GLUCOSE (test code = EAG) 148 MG/DL [id number] 02:55:00* Test Item Value Reference Range Interpretation Comments TROPONIN-I (test code = TROPI) 0.016 ng/mL 0-0.045 N COMMENTS TO PRINCIPAL ANDROID DEVELOPER: COLLECT 3 HOURS AFTER PREVIOUS SAMPLETHYROID PROFILE [id number] 02:55:00* Test Item Value Reference Range Interpretation [...] HYPER : < 0.35 mIU/mL BASIC METABOLIC [id number] 02:55:00* Test Item Value Reference Range Interpretation [...] code = CA) 9.3 mg/dL 8.5-10.1 N [id number] 00:08:00* Test Item Value Reference Range Interpretation Comments TROPONIN-I (test code = TROPI) <0.015 ng/mL 0-0.045 N COMMENTS TO PRINCIPAL ANDROID DEVELOPER: COLLECT 3 HOURS AFTER PREVIOUS SAMPLEURINALYSIS [id number] 17:31:00* Test Item Value Reference Range Interpretation [...] MUCU) FEW per LPF NONE-FEW URINALYSIS W/O [id number] 17:31:00* Test Item Value Reference Range Interpretation Comments UA LEUKOCYTE ESTERASE W REFLEX (test code = LEUUR) 25 Erickson/uL (Trace ) NEGATIVE A URINALYSIS [id number] 17:21:00* Test Item Value Reference Range Interpretation [...] = BACU) per HPF NONE URINALYSIS W/O [id number] 17:21:00* Test Item Value Reference Range Interpretation Comments UA LEUKOCYTE ESTERASE W REFLEX (test code = LEUUR) NEG ATIVE URINALYSIS [id number] 17:21:00* Test Item Value Reference Range Interpretation [...] = BACU) per HPF NONE URINALYSIS W/O [id number] 17:21:00* Test Item Value Reference Range Interpretation Comments UA LEUKOCYTE ESTERASE W REFLEX (test code = LEUUR) NEG ATIVE - CT HEAD/BRAIN W/O [id number] 16:29:00 Name: MARCO HERRERA [facility] : 1945 Age/S: 72 / F [address] [facility] Unit #: [id number] Loc: [place] [address] Phys: Jaquan Lira MD Acct: [id number] Dis Date: Status: REG ER PHONE #: [phone] Exam Date: 08/16/2018 1621 FAX #: [phone] Reason: dizzy EXAMS: CPT CODE: [id number] CT HEAD/BRAIN W/O CONT 27282 REASON FOR EXAM: dizzy EXAM ORDER DATE: 08/16/2018 3:47 PM Ordering MMinh: Jaquan Lira MD PROCEDURE: - CT HEAD/BRAIN [...] calvarium is intact. IMPRESSION: Unremarkable brain. at 1622 Reported and signed by: Kei Melendrez M.D. CC: Fredi Ocampo; Jaquan Lira MD Technologist:Estephania Blanca CTDI: DLP: Trnscb Date/Time: 08/16/2018 (1623) Kinjal.VTL Orig Print D/T: S: 08/16/2018 (3710) PAGE 1 Signed Report - XR CHEST 1 [id number] 16:27:00 Name: MARCO HERRERA [facility] : 1945 Age/S:72 /F [address] [facility] Unit#:[id number] Loc: [place] [address] Phys: Jaquan Lira MD Dis Date: PHONE #: [phone] Status: REG ER FAX #: [phone] Exam Date: 08/16/2018 Reason: SOB EXAMS: CPT CODE: [id number] XR CHEST 1 V 12211 REASON FOR EXAM: SOB EXAM ORDER DATE: 08/16/2018 3:47 PM Ordering M.Jeffrey.: Jaquan Lira MD PROCEDURE: - XR CHEST [...] MD Technologist: Estephania Blanca Trnscrpt Data: 08/16/2018 (1627) GerardL Orig Print D/T: S: 08/16/2018 (6201) PAGE 1 Signed Report B-TYPE NATRIURETIC [id number] 16:13:00* Test Item Value Reference Range Interpretation Comments B-TYPE NATRIURETIC PEPTIDE (test code = BNP) 146 pg/mL 0-100 H COMPREHENSIVE METABOLIC [id number] 16:12:00* Test Item Value Reference Range Interpretation [...] code = ALKP) 141 U/L 38-126 H [id number] 16:12:00* Test Item Value Reference Range Interpretation Comments TROPONIN-I (test code = TROPI) <0.015 ng/mL 0.00-0.056 N COMPREHENSIVE METABOLIC [id number] 16:08:00* Test Item Value Reference Range Interpretation [...] TOTAL (test code = ALKP) IUnit/L 45-117 [id number] 16:08:00* Test Item Value Reference Range Interpretation Comments TROPONIN-I (test code = TROPI) ng/mL 0-0.045 CBC W/AUTO [id number] 15:57:00* Test Item Value Reference Range Interpretation [...]
[2019-11-19] MEDS: SODIUM CHLORIDE 0.9% 1000ML 1,000 ML IV SCH (20:46)
[2019-11-19] MEDS: INSULIN REGULAR, HUMAN 100 UNIT/1 ML 3ML VIAL SQ SCH (20:47)
[2019-11-19] MEDS ORDERED: METOPROLOL TART25 MG PO (21:05)
[2019-11-19] MEDS ORDERED: METFORMIN HCL500 MG PO (21:05)
[2019-11-19] MEDS ORDERED: PLAVIX75 MG PO (21:05)
[2019-11-19] MEDS ORDERED: GLIMEPIRIDE2 MG PO (21:05)
[2019-11-19] MEDS ORDERED: ULTRAM50 MG PO (21:05)
[2019-11-19] MEDS ORDERED: DIOVAN80 MG PO (21:09)
[2019-11-19] MEDS ORDERED: IPRATROPIU0.2 MG/1 M NEB (21:09)
[2019-11-19] MEDS ORDERED: SERTRALINE HCL100 MG PO (21:09)
[2019-11-19] MEDS ORDERED: PROTONIX20 MG PO (21:09)
[2019-11-19] MEDS ORDERED: LEVOTHYROXINE112 MCG PO (21:09)
[2019-11-19] MEDS ORDERED: BUSPIRONE HCL5 MG PO (21:09)
[2019-11-19 21:22] VITALS: BP_SYST 128; BP_DIAS 33; BP_DIAS 53
[2019-11-19 21:55] VITALS: BP 128/53
--- NOTE | 2019-11-19 23:33 | NUR ---
History and physical History of present illness 74-year-old female with past medical history of hypertension, diabetes, hypothyroidism, hyperlipidemia, status post appendectomy, hysterectomy, hip repl acement and hernia repairs, presented to the ER after recommendation of her PCP Dr. Ocampo, the patient reports severe and progressive abdominal pain, no radiation, jaundice to the skin and eyes, unintentional weight loss for about 2 weeks, generalized weakness and loss of appetite. Admission vital signs: Temperature 98.2, pulse 80, respirations 18, BP 128/63, pulse ox 99% on room air. Abnormal labs: Hemoglobin 11.3, sodium 133, carbon dioxide 17, anion gap 20.2, creatinine 1.50, glucose 373, total bilirubin 12.1, AST 103, ALT 78, alkaline phosphatase 151, albumin 3.2, globulin 4.2. CT of the abdomen and pelvis: Intra-and extrahepatic biliary dilation which can be due to postcholecystectomy reservoir effect. Patient may benefit from HIDA scan to evaluate functional excretion within the biliary system or MRCP for retained extrahepatic ductal stones. Cystic mass in the pelvis which measures up to 5 cm. Recommended pelvic ultrasound and TOTER consultation due to abnormal finding. Review of systems Constitutional: No fever no chills HEENT: Eye jaundice, denies headache, no ear pain, no nosebleed, no sore throat. Cardiovascular: Denies chest pain, PND, swelling of the legs, palpitations or blackout spells. Respiratory: Denies cough, hemoptysis or shortness of breath. Gastrointestinal: Reports abdominal pain. Denies nausea, vomiting, diarrhea, hematemesis or melena. Genitourinary: Denies hematuria, frequency or dysuria. Neurologic: Denies convulsive disorders, no focal weakness, no ataxia. Psych: Denies anxiety or depression Skin: Generalized jaundice, no rash. Hematological system: Denies bleeding, no petechia. Musculoskeletal: No significant deformity or swelling of the joints. Allergy neurology speech correction assistant: Negative Physical exam Constitutional: oriented to person, place, and time. He appears well-developed. HEENT: Head: Normocephalic and atraumatic. PERRLA. Cardiovascular: Regular rhythm, no murmurs, no rubs, no gallops. Pulmonary/Chest: Clear bilaterally, no rales, no rhonchi. Abdominal: Soft, nontender, bowel sounds positive and normal. Reports distention, no guarding, no rebound. Very distended Musculoskeletal: Normal range of motion. Extremities: No edema, no clubbing. Neurological: alert and oriented to person, place, and time. Skin: Jaundice, skin is warm and dry. Psychiatric: normal mood and affect. EXAM: CT Abdomen and Pelvis WITHOUT contrast INDICATION: Abdominal distention and jaundice. . HEPATOBILIARY: No focal hepatic lesions. There is intra- and extra- hepatic biliary dilation. GALLBLADDER: No radio-opaque stones or sludge. No wall thickening. SPLEEN: No splenomegaly. PANCREAS: No focal masses or ductal dilatation. ADRENALS: There is a 2.1 x 1.4 cm left adrenal adenoma. The right adrenal gland is normal. KIDNEYS/URETERS: The bilateral kidneys appear atrophic which can be related to chronic medical renal disease. No hydronephrosis. No cystic or solid mass lesions. No stones. GI TRACT: No abnormal distention, wall thickening, or evidence of bowel obstruction. Appendix is normal. PELVIC ORGANS/BLADDER: Evaluation of pelvic organs is limited by streak artifact from right hip hardware. There is a cystic well-circumscribed mass in the pelvis which measures approximately 5.0 x 1.4 cm (series 2 image 69). LYMPH NODES: No lymphadenopathy. VESSELS: Scattered mild arterial vascular calcifications. PERITONEUM / RETROPERITONEUM: No free air or fluid. 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 No radiographic evidence of hardware complication. There are degenerative changes in the spine. No suspicious osteolytic or osteoblastic lesions SOFT TISSUES: There are granulomatous changes of the posterior soft tissues, likely from prior injections. IMPRESSION: 1. Intra- and extra- hepatic biliary dilation which can be due to post cholecystectomy resevoir effect. However, there are are are no prior images for direct comparison. Patient may benefit from HIDA scan to evaluate functional excretion within the biliary system or MRCP for retained extrahepatic ductal stones. 2. Cystic mass in the pelvis which measures up to 5 cm. Recommend further evaluation of this mass with dedicated pelvic ultrasound and TOTER consultation as this is an abnormal finding in patient of this age group. Signed by: Chino Walters MD on 11/19/2019 7:56 PM Assessment Pelvic cystic mass. Abdominal pain Generalized weakness Jaundice Elevated total bilirubin Elevated AST and ALT Hyperglycemia Elevated creatinine Plan Reconcile medications BP control Glycemic control Pain control Electrolyte control DVT/GI prophylaxis Repeat labs Recommended pelvic ultrasound and TOTER consultation due to abnormal finding. TOTER consult GI consult
[2019-11-20] VITALS (7 sets, daily range): BP systolic 116–160; BP diastolic 38–70
[2019-11-20] MEDS: SODIUM CHLORIDE 0.9% 1000ML 1,000 ML IV SCH ×3 (03:14→13:10)
[2019-11-20 06:03] LABS: BASOPHILS % 0.4 % (0.0-1.0); EOSINOPHILS # (AUTO) 0.2 (0.0-0.4); EOSINOPHILS % 2.3 % (0.0-6.0); HEMATOCRIT 32.6 % (34.2-44.1); HEMOGLOBIN 10.2 g/dL (12.0-16.0); LYMPHOCYTES # (AUTO) 1.1 (1.0-3.2); LYMPHOCYTES % 14.9 % (18.0-39.1); MEAN CORPUSCULAR HEMOGLOBIN 25.7 pg (28-32); MEAN CORPUSCULAR HGB CONC 31.3 g/dL (31-35); MEAN CORPUSCULAR VOLUME 82.1 fL (81-99); MONOCYTES # (AUTO) 0.5 (0.2-0.8); MONOCYTES % 7.5 % (4.4-11.3); NEUTROPHILS # (AUTO) 5.3 (2.1-6.9); NEUTROPHILS % 74.6 % (38.7-80.0); PLATELET COUNT 226 x10e3/uL (140-360); RED BLOOD COUNT 3.97 x10e6/uL (3.6-5.1); RED CELL DISTRIBUTION WIDTH 20.2 % (11.7-14.4)
[2019-11-20 06:25] LABS: ALBUMIN 2.9 g/dL (3.5-5.0); ALBUMIN/GLOBULIN RATIO 0.8 (0.8-2.0); ANION GAP 17.4 mmol/L (8-16); CALCIUM 10.4 mg/dL (8.4-10.2); CREATININE, SERUM 1.29 mg/dL (0.57-1.11); POTASSIUM 4.4 mmol/L (3.5-5.1)
--- NOTE | 2019-11-20 07:00 | NUR ---
RCD PT AT BED PT IS ALERT AND ORIENTED RESTING ON BED IV PATENT BY SALINE FLUSH BED LOW AND LOCKED CALL LIGHT IN REACH
--- NOTE | 2019-11-20 07:00 | NUR ---
PT NPO FOR PROCEDURE
[2019-11-20] MEDS: INSULIN REGULAR, HUMAN 100 UNIT/1 ML 3ML VIAL SQ SCH ×4 (07:30→21:00)
[2019-11-20] MEDS ORDERED: IPRATROPIUM BROMIDE 0.02% 2.5 ML NEB NEB PRN (10:15)
--- NOTE | 2019-11-20 11:13 | NUR ---
PT WENT TO PROCEDURE IN SAFE CONDITION
--- NOTE | 2019-11-20 11:50 | NUR ---
PT BACK AFTER PROCEDURE
--- NOTE | 2019-11-20 12:51 | Consultation ---
DATE OF CONSULTATION: 11/20/2019 Cardiology Consultation REASON FOR CONSULTATION: Cardiovascular disease management. HISTORY OF PRESENT ILLNESS: A 74-year-old woman with history of type 2 diabetes mellitus, hypertension, dyslipidemia, coronary artery disease with history of several prior PCIs, most recent one described in July of this year done at outside facility, presents with jaundice, abdominal discomfort, nausea, vomiting, and decreased p.o. tolerance. She is undergoing evaluation for this. GI has been consulted. She denies any chest pain or shortness of breath. PAST MEDICAL HISTORY: Remarkable for diabetes, hypertension, hypothyroidism, dyslipidemia, depression, morbid obesity, and coronary artery disease with previous coronary stents. PAST SURGICAL HISTORY: Remarkable for previous coronary stents, total abdominal hysterectomy and oophorectomy, right hip replacement, appendectomy, cholecystectomy, tonsillectomy, and umbilical hernia repair. SOCIAL HISTORY: No smoking, alcohol, or drugs. FAMILY HISTORY: Noncontributory. PHYSICAL EXAMINATION: VITAL SIGNS: Temperature 97.6, heart rate 62, respiratory rate 16, blood pressure 146/56, and O2 saturation 96% on room air. GENERAL: In no acute distress. Alert. NECK: No JVD. No carotid bruit. CHEST: Clear to auscultation. CARDIOVASCULAR: Regular rate and rhythm. Normal S1 and S2. Systolic ejection murmur. ABDOMEN: Distended. Bowel sounds positive. Mild discomfort in the epigastric right upper quadrant area without rebound or guarding. EXTREMITIES: Trace edema. Normothermic. CARDIOVASCULAR MEDICATIONS: Reviewed. Metoprolol tartrate 25 mg daily, clopidogrel 75 mg daily, and valsartan is currently on hold. STUDIES: Reviewed. White blood cells 7, hemoglobin 10, and platelets 226. INR 1.1 and PT 14.9. Sodium 138, potassium 4.4, chloride 104, bicarbonate 21, BUN 19, creatinine 0.129, and glucose 171. Total bilirubin is 11.6, AST 102, ALT 71, and alkaline phosphatase 862. Total protein 6.7 and albumin 2.9. Lipase 67. Coronavirus PCR pending. Abdomen and pelvis CT, intra and extrahepatic biliary dilatation, cystic mass in the pelvis which measures up to 5 cm. ASSESSMENT AND PLAN: 1. Pelvic mass. 2. Jaundice and dilated biliary tract on imaging. 3. Coronary artery disease with previous coronary stents, most recent described from July 2019. 4. Diabetes. 5. Hypertension. 6. Dyslipidemia. RECOMMEND: Continue evaluation from GI standpoint as well as General Surgical or METAL TECHNICIAN consultation given observed adnexal or pelvic mass. We will attempt to obtain further records from recent coronary intervention. For now if no planned procedures, please keep on Plavix, as the patient describes recent PCI. Obtain echocardiogram and EKG. Further recommendations to follow. MD HOWARD Owusu/PAMELLA /[id number]
--- NOTE | 2019-11-20 14:50 | Diagnostic Imaging Report ---
EXAM: MRI of the abdomen without contrast with MRCP INDICATION: Jaundice and abdominal pain. COMPARISON: 11/19/2019. TECHNIQUE: Multiplanar and multisequence imaging was performed of the abdomen. T1 and T2-weighted images were obtained with and without contrast. T1-weighted in and [id number] , Dynamic, noncontrast T1-weighted spoiled gradient echo scans. M.R.C.P. technique: Multiplanar, multisequence MRCP was performed, with sequences including coronal turbo spin-echo T1-weighted scans, [facility] MRCP scans, coronal spin, coronal MPR 2, [facility] HR, [facility] MRCP TENA. Discussion: Limited exam due to motion artifact and lack of intravenous contrast. LOWER THORAX: Unremarkable. HEPATOBILIARY: There is diffuse loss of signal on out of phase images, consistent with diffuse hepatic steatosis. No focal hepatic lesions. The level of the mid common bile duct there is a T2 hypointense focus measuring 1.7 cm in length causing occlusion of the common bile duct. There is severe intrahepatic biliary ductal dilation. Incidental note is made of periampullary duodenal diverticulum. GALLBLADDER: There are cholecystectomy clips. SPLEEN: No splenomegaly. PANCREAS: No focal masses or ductal dilatation. ADRENALS: 2 cm nodule within the left adrenal gland which demonstrates signal loss on opposed phase images consistent with lipid rich adenoma. KIDNEYS/URETERS: Kidneys enhance symmetrically. No hydronephrosis. 1.2 cm T2 hyperintense focus in lower pole of the right kidney likely representing cyst. No stones. GI TRACT: No abnormal distention, wall thickening, or evidence of bowel obstruction LYMPH NODES: No lymphadenopathy. VESSELS: Unremarkable. PERITONEUM / RETROPERITONEUM: No free air or fluid. BONES: There are degenerative changes in the lumbar spine. SOFT TISSUES: Unremarkable. IMPRESSION: Soft tissue thickening in the mid common bile duct resulting in occlusion of the common bile duct and severe intrahepatic biliary duct dilation. 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 Further evaluation with ERCP is recommended. Periampullary duodenal diverticulum. Signed by: Gabe Browning MD on 11/20/2019 2:47 PM
[2019-11-20] MEDS: BUSPIRONE HCL 5 MG TAB PO SCH (16:25)
[2019-11-20] MEDS: GLIMEPIRIDE 2 MG TAB PO SCH (16:25)
--- NOTE | 2019-11-20 16:55 | NUR ---
Nutrition Screen Note RD Recommendation for Physician: -Continue 1800 ADA diet -If PO intake is <50% of meals, offer Glucerna nutrition supplement Plan of Care: RD following, monitoring for tolerance and adequacy Nutrition reason for involvement: Nutrition Risk Trigger Primary Diagnose(s): jaundice and elevated bilirubin PMH: diabetes, hypertension, hypothyroidism, dyslipidemia, depression, morbid obesity, and coronary artery disease with previous coronary stents. Ht: 60 in Wt: 212 lb BMI: 41.4 kg/m2 IBW:[address] Assessment: (11/20/19) Chart reviewed. Labs and meds reviewed. Pt is a 74 year old female admitted with jaundice and elevated bilirubin. Used cultural link to translate information since pt only speaks Georgian. Pt reports eating about 50% of her meals. Pt reports she used to weigh 230 lbs a long time ago and now weighs 212 lbs. Pt did not specify when she last weighed 230 lbs. Pt reports some nausea. Pt requested diabetic diet education materials which were provided in Georgian. Will continue to monitor. Current Diet: 1800 ADA Malnutrition Evaluation (11/20/19) The patient does not meet criteria for a specified degree of malnutrition at this time. Will re-evaluate at follow-up as appropriate. Diet Education Needs Assessment: Diet education indicated. RD provided pt with diabetic diet education materials (carbohydrate counting and reading the food label) in Georgian. Nutrition Care Level: low Signed: Dianelys Kim RD, LD
--- NOTE | 2019-11-20 17:00 | NUR ---
PAGED DR PALOMO TO NOTIFY THE CONSULTATION AND LEFT THE MESSAGE
--- NOTE | 2019-11-20 17:32 | NUR ---
[employer] RETURNED THE CALL SHE SAID DR PALOMO WILL SEE THE PT ON TOMORROW
--- NOTE | 2019-11-20 18:39 | NUR ---
PT RESTING ON BED BED SIDE REPORT GIVEN TO ONCOMING NURSE
--- NOTE | 2019-11-20 19:37 | Pre Op History & Physical ---
HISTORY OF PRESENT ILLNESS: The patient is 74 years old, came into the ER, complaining of severe abdominal pain and jaundice. She also complained of unintentional weight loss, lack of appetite. Her abdominal pain started about two weeks ago and got worse in nature. This started gradually, colicky in nature, progressed with no exacerbating factors or relieving factors. PAST MEDICAL HISTORY: 1. Hypertension. 2. Diabetes. 3. Hypothyroidism. 4. Hyperlipidemia. 5. Morbidly obese. PAST SURGICAL HISTORY: 1. Appendectomy. 2. Hysterectomy. 3. Hip replacement. 4. Hernia repair. ALLERGIES: NO KNOWN DRUG ALLERGIES. MEDICATIONS: See the list. SOCIAL HISTORY: Denies smoking, alcohol, drug abuse. REVIEW OF SYSTEMS: She reports no cardiovascular, respiratory, musculoskeletal, neurological and psychological problems. PHYSICAL EXAMINATION: VITAL SIGNS: Stable. CHEST: Clear to auscultation. CARDIOVASCULAR: Regular rate and rhythm. ABDOMEN: Soft, nontender. ASSESSMENT AND PLAN: This 74 years old with abdominal pain and jaundice. She has been seen and investigated for those also during her CT scan showed a 5 cm pelvic ovarian cyst. I took liberty to order on her pelvic ultrasound and also CA-125. I also asked her to see me in the office in two weeks time. By then, we will get the results and review her symptoms accordingly after being discharged from the hospital. The patient understands that fully and we will follow up her in due course. Linda Strauss MD DD/PAMELLA /[id number]
[2019-11-20] MEDS: SERTRALINE HCL 100 MG TAB PO SCH (20:12)
[2019-11-20 21:00] LABS: BILIRUBIN,URINE MODERATE (NEGATIVE); CLARITY,URINE CLOUDY (CLEAR); COLOR,URINE AMBER (YELLOW); KETONES,URINE NEGATIVE (NEGATIVE); LEUKOCYTE ESTERASE ,URINE NEGATIVE (NEGATIVE); NITRITE,URINE POSITIVE (NEGATIVE); PROTEIN,URINE DIPSTICK NEGATIVE (NEGATIVE); URINE UROBILINOGEN 0.2 mg/dL (0.2 - 1)
[2019-11-20 21:18] LABS: BACTERIA,URINE MANY /HPF; EPITHELIAL CELLS,URINE RARE /LPF; WBC,URINE (MAN) 0-5 /HPF (0-5)
--- NOTE | 2019-11-20 21:42 | NUR ---
Pt blood pressure 160/70. Notified Dr. Adams of pt results. New order received for hydralazine 10mg IV Q6hrs as needed for SBP >160.
[2019-11-20] MEDS: HYDRALAZINE HCL 20 MG/ML VIAL IV PRN (22:06)
--- NOTE | 2019-11-20 23:14 | NUR ---
Date of Service 11/20/19 Subjective: Patient was doing fine at the time evaluation. The patient was in no distress. No fever no chills no chest pain or shortness of breath. Her abdomen is distended. She has had no nausea no vomiting. Objective: Patient alert oriented to person time place. Patient in no apparent distress. Vital signs blood pressure 120/41, pulse 83, temperature 98.0. HEENT: No gross abnormalities Neck: Supple no JVD Lungs: Clear to auscultation Heart: Regular rate and rhythm, no murmurs no gallops Abdomen: Distended abdomen and guarding but no rebound Extremities: No edema Neurologic: Alert oriented 3, no focal weakness. Psychiatrist: Normal mood, normal judgment. Skin: No rashes Assessment Pelvic cystic mass. Abdominal pain Generalized weakness Jaundice Elevated total bilirubin Elevated AST and ALT Hyperglycemia Elevated creatinine Plan 11/19/2019 Reconcile medications BP control Glycemic control Pain control Electrolyte control DVT/GI prophylaxis Repeat labs Recommended pelvic ultrasound and ELEVATOR OPERATOR SERVICE consultation due to abnormal finding. ELEVATOR OPERATOR SERVICE consult GI consult 11/20/2019 Proceeded to request UA and culture patient in view of abnormal CAT scan consistent with a 5 cm pelvic ovarian cyst. The patient is being followed by GI pertaining significant jaundice total bili 11.6 ERCP IMPRESSION: Soft tissue thickening in the mid common bile duct resulting in occlusion of the common bile duct and severe intrahepatic biliary duct dilation. 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 Further evaluation with ERCP is recommended.
[2019-11-21] VITALS (7 sets, daily range): BP systolic 120–168; BP diastolic 38–56
[2019-11-21] MEDS: LEVOTHYROXINE SODIUM 112 MCG TAB PO SCH (06:03)
--- NOTE | 2019-11-21 06:45 | NUR ---
SBAR BEDSIDE REPORT RECEIVED FROM PM SHIFT. PATIENT IS PRIMARILY CZECH SPEAKING AND WAS FOUND AAOX4. PATIENT IS ABLE TO MAKE NEEDS KNOWN. PATIENT DENIES ANY FURTHER NEEDS. CALL LIGHT AND BELONGINGS PLACED NEARBY. I WILL CONTINUE TO MONITOR.
[2019-11-21] MEDS: PANTOPRAZOLE SOD 40 MG TABEC PO SCH (07:30)
[2019-11-21] MEDS: INSULIN REGULAR, HUMAN 100 UNIT/1 ML 3ML VIAL SQ SCH ×4 (07:30→21:00)
--- NOTE | 2019-11-21 08:43 | Diagnostic Imaging Report ---
Exam: Pelvic ultrasound. History: Pelvic mass Comparison: CT abdomen and pelvis of 11/19/2019 Findings: Transabdominal sonographic evaluation of the pelvis. Status post hysterectomy and unilateral oophorectomy (the patient does not recall which side). The ovaries are not visualized. A left adnexal cyst measures 4.4 x 4.3 x 4.4 cm and appears anechoic without significant soft tissue component or associated vascularity. No free fluid in the pelvis. Impression: Left adnexal cyst measures 4.4 x 4.3 x 4.4 cm. Recommend follow-up ultrasound in 6-12 months to assess for stability. Signed by: Tico Jasmine MD on 11/21/2019 8:39 AM
[2019-11-21] MEDS: GLIMEPIRIDE 2 MG TAB PO SCH ×2 (09:00→19:19)
[2019-11-21] MEDS: CLOPIDOGREL BISULFATE 75 MG TAB PO SCH (09:00)
[2019-11-21] MEDS: BUSPIRONE HCL 5 MG TAB PO SCH ×2 (09:00→19:19)
[2019-11-21] MEDS ORDERED: VALSARTAN 80 MG TAB PO SCH (09:00)
--- NOTE | 2019-11-21 09:25 | NUR ---
PATIENT STATES SHE TOOK PLAVIX LAST ON SUNDAY. GUTIERREZ DOMINIQUE, RADIOLOGY, MADE AWARE.
[2019-11-21] MEDS: METOPROLOL TARTRATE 25 MG TAB PO SCH (10:42)
[2019-11-21] MEDS ORDERED: IOPAMIDOL 300MG/ML 100 ML INFUS..BTL IV ONE (13:46)
[2019-11-21] MEDS ORDERED: SODIUM CHLORIDE 0.9% 250ML 250 ML ONE (13:46)
[2019-11-21] MEDS ORDERED: LIDOCAINE HCL 1% LOCAL INJ 20 ML VIAL ONE (13:46)
[2019-11-21] MEDS ORDERED: FENTANYL CITRATE/PF 100MCG/2 ML INJ ONE ×2 (14:12→15:23)
[2019-11-21] MEDS ORDERED: MIDAZOLAM HCL 2 MG/2 ML VIAL ONE ×2 (14:12→15:23)
[2019-11-21] MEDS ORDERED: CEFTRIAXONE SOD 1 GM/NS 50 ML 50 ML IV ONE (14:34)
--- NOTE | 2019-11-21 18:58 | NUR ---
PROGRESS NOTE 11/21/19 Subjective The patient being follow-up by GI. Patient had MRCP done. Impression as follow: 1.Soft tissue thickening in the mid common bile duct resulting in occlusion of the common bile duct and severe intrahepatic biliary duct dilation. 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 Further evaluation with ERCP recommended. 2.Patient was seen and evaluated by FOREIGN LEGAL CONSULTANT recommendations noted CT scan shoed a 5 cm pelvic ovaryan cyst. Pelvic ultrasound was ordered and also CA-125. Outpatient follow up is recommended Objective: Patient alert oriented to person time place. Patient in no apparent distress. Vital signs blood pressure 120/41, pulse 83, temperature 98.0. HEENT: No gross abnormalities Neck: Supple no JVD Lungs: Clear to auscultation Heart: Regular rate and rhythm, no murmurs no gallops Abdomen: Distended abdomen and guarding but no rebound Extremities: No edema Neurologic: Alert oriented 3, no focal weakness. Psychiatrist: Normal mood, normal judgment. Skin: No rashes Assessment Pelvic cystic mass. Abdominal pain Generalized weakness Jaundice Elevated total bilirubin Elevated AST and ALT Hyperglycemia Elevated creatinine Plan 11/19/2019 Reconcile medications BP control Glycemic control Pain control Electrolyte control DVT/GI prophylaxis Repeat labs Recommended pelvic ultrasound and FOREIGN LEGAL CONSULTANT consultation due to abnormal finding. FOREIGN LEGAL CONSULTANT consult GI consult 11/20/2019 Proceeded to request UA and culture patient in view of abnormal CAT scan consistent with a 5 cm pelvic ovarian cyst. The patient is being followed by GI pertaining significant jaundice total bili 11.6 11/21/19 Continue present care, Treasury Consultant recommendations noted. GI is following ptient coninueto monitor total gildardo
[2019-11-21] MEDS ORDERED: ONDANSETRON HCL INJ 2MG/ML 2ML 2 MG/ML VIAL IV PRN (19:00)
[2019-11-21] MEDS: HYDROCODONE/APAP 10MG-325MG TAB PO PRN ×2 (19:18→23:21)
[2019-11-21] MEDS: SODIUM CHLORIDE 0.9% 1000ML 1,000 ML IV SCH (19:18)
--- NOTE | 2019-11-21 19:45 | NUR ---
BILIARY DRAIN OUTPUT 100 CC BLOODY DRAINAGE
--- NOTE | 2019-11-21 19:46 | NUR ---
Received change of shift report from AM nurse. Walking rounds completed.
--- NOTE | 2019-11-21 19:48 | Progress Note ---
DATE: 11/21/2019 Cardiology Progress Note SUBJECTIVE: Ms. Koch is status post biliary stent. Denies chest pain or shortness of breath. Has mild abdominal discomfort. OBJECTIVE: VITAL SIGNS: Temperature 97.6, heart rate 70, blood pressure 132/55, respiratory rate 18, and O2 saturation 100%. GENERAL: In no acute distress. Alert. NECK: No JVD. CHEST: Clear to auscultation. CARDIOVASCULAR: Regular rate and rhythm. Normal S1 and S2. ABDOMEN: Soft. Mild discomfort right upper quadrant. EXTREMITIES: With no edema. Warm extremities. Mucosa with jaundice. CARDIOVASCULAR MEDICATIONS: Reviewed. Clopidogrel 75 mg daily, metoprolol tartrate 25 mg daily, and hydralazine 10 mg q.6 hours. LABORATORY DATA: Creatinine 1.2. Hemoglobin 10 and platelets 226. AST 102, ALT 76, alkaline phosphatase 862, and total bilirubin 11.6. ASSESSMENT AND PLAN: A 74-year-old woman with a history of coronary artery disease, status post PCI in July 2019, diabetes, hypertension, dyslipidemia with obstructive jaundice and adnexal mass,s/p biliary tract intervention. RECOMMEND: Once okay with GI, please resume clopidogrel, as the patient had recent drug-eluting stent PCI. Continue beta-pramod. Statin on hold given abnormal LFTs. Jose Adames MD AFGretchen/PAMELLA /[id number] MTDD
[2019-11-21] MEDS: SERTRALINE HCL 100 MG TAB PO SCH (20:01)
--- NOTE | 2019-11-21 20:21 | NUR ---
Flushed drain x2 with 5cc of fluids. Patient tolerated well. Family called to check on patient. Patient resting quitly at this time.
--- NOTE | 2019-11-21 21:51 | NUR ---
S/W Dr Jasmine in radiology. Informed him out drain output, color, clots and patient condition. stated ok.
[2019-11-21] MEDS: HYDRALAZINE HCL 20 MG/ML VIAL IV PRN (23:22)
[2019-11-22] VITALS (8 sets, daily range): BP systolic 126–156; BP diastolic 37–64
[2019-11-22 05:28] LABS: BASOPHILS % 0.2 % (0.0-1.0); EOSINOPHILS % 0.1 % (0.0-6.0); HEMATOCRIT 34.5 % (34.2-44.1); HEMOGLOBIN 10.9 g/dL (12.0-16.0); LYMPHOCYTES # (AUTO) 0.5 (1.0-3.2); LYMPHOCYTES % 4.1 % (18.0-39.1); MEAN CORPUSCULAR HEMOGLOBIN 25.3 pg (28-32); MEAN CORPUSCULAR HGB CONC 31.6 g/dL (31-35); MONOCYTES # (AUTO) 0.6 (0.2-0.8); MONOCYTES % 4.4 % (4.4-11.3); NEUTROPHILS # (AUTO) 11.4 (2.1-6.9); NEUTROPHILS % 90.6 % (38.7-80.0); PLATELET COUNT 298 x10e3/uL (140-360); RED BLOOD COUNT 4.31 x10e6/uL (3.6-5.1); RED CELL DISTRIBUTION WIDTH 21.2 % (11.7-14.4)
--- NOTE | 2019-11-22 05:49 | NUR ---
Patient resting quitly at this time.
[2019-11-22 05:52] LABS: ALBUMIN 2.9 g/dL (3.5-5.0); ALBUMIN/GLOBULIN RATIO 0.8 (0.8-2.0); ANION GAP 20.5 mmol/L (8-16); CALCIUM 10.1 mg/dL (8.4-10.2); CREATININE, SERUM 0.98 mg/dL (0.57-1.11); POTASSIUM 4.5 mmol/L (3.5-5.1)
[2019-11-22] MEDS: LEVOTHYROXINE SODIUM 112 MCG TAB PO SCH (06:00)
--- NOTE | 2019-11-22 06:45 | NUR ---
SBAR BEDSIDE REPORT RECEIVED FROM PM SHIFT RN. PATIENT FOUND LYING IN BED IN NO ACUTE DISTRESS. PATIENT IS PRIMARILY TURKMEN SPEAKING BUT CAN CONVERSE MINIMALLY IN [place]. PATIENT IS AAOX4 AND REQUESTED HELP WITH MEAL SET UP. HELP WAS PROVIDED AND PATIENT DENIED ANY FURTHER NEEDS. PATIENT WAS EDUCATED ON FALL RISK PRECAUTIONS AND VERBALIZED UNDERSTANDING. CALL LIGHT AND BELONGINGS PLACED NEARBY. PATIENT AWARE OF HOURLY ROUNDS. I WILL CONTINUE TO MONITOR.
[2019-11-22] MEDS: INSULIN REGULAR, HUMAN 100 UNIT/1 ML 3ML VIAL SQ SCH ×5 (08:00→20:28)
[2019-11-22] MEDS: PANTOPRAZOLE SOD 40 MG TABEC PO SCH (08:00)
[2019-11-22 08:40] LABS: BAND NEUTROPHILS % (MANUAL) 10 %; EOSINOPHILS % (MANUAL) 1 % (0-7); LYMPHOCYTES % (MANUAL) 6 % (19-48); MONOCYTES % (MANUAL) 4 % (3.4-9.0); NEUTROPHILS % (MANUAL) 79 % (40-74)
[2019-11-22 08:41] LABS: HYPOCHROMASIA FEW; PLATELET ESTIMATE ADEQUATE; PLATELET MORPHOLOGY COMMENT NORMAL; RBC MORPHOLOGY COMMENT ABNORMAL; SCHISTOCYTES FEW
[2019-11-22] MEDS: ASPIRIN 325 MG TAB PO SCH (09:25)
[2019-11-22] MEDS: GLIMEPIRIDE 2 MG TAB PO SCH ×2 (09:25→18:15)
[2019-11-22] MEDS: BUSPIRONE HCL 5 MG TAB PO SCH ×2 (09:25→18:15)
[2019-11-22] MEDS: CLOPIDOGREL BISULFATE 75 MG TAB PO SCH (09:26)
[2019-11-22] MEDS: METOPROLOL TARTRATE 25 MG TAB PO SCH (09:26)
[2019-11-22] MEDS: HYDROCODONE/APAP 10MG-325MG TAB PO PRN (09:43)
--- NOTE | 2019-11-22 11:05 | Progress Note ---
DATE: 11/22/2019 Cardiology Progress Note. SUBJECTIVE: Ms. Koch continues to have right upper quadrant abdominal discomfort, which is gradually improving. She has no other complaints. OBJECTIVE: VITAL SIGNS: Temperature 98.3, heart rate 83, blood pressure 143/59, respiratory rate 20, O2 saturation 94%. GENERAL: In no acute distress. Alert. NECK: No JVD. CHEST: Clear to auscultation. CARDIOVASCULAR: Regular rate and rhythm. Normal S1 and S2. Systolic ejection murmur. No S3 or S4. ABDOMEN: Soft. Mild tenderness right upper quadrant. No rebound or guarding. EXTREMITIES: Trace edema, normothermic. CARDIOVASCULAR MEDICATIONS: Reviewed: 1. Clopidogrel 75 mg daily. 2. Aspirin 81 mg daily resumed today. 3. Metoprolol tartrate 25 mg daily. STUDIES: Reviewed, creatinine 0.9. Hemoglobin 10.9, white blood cells 12, platelets 298. AST trending down 125, ALT 78, alkaline phosphatase 842, trending down, total bilirubin is 13.7. ASSESSMENT AND PLAN: A 74-year-old woman with CAD, status post drug-eluting stents, most recent placed in July 2019, hypertension, depression, hypothyroidism, diabetes, comes with obstructive jaundice, now status post biliary intervention, adnexal mass, undergoing workup. RECOMMEND: Continue current cardiovascular medications and monitor H and H. Not on statin, given abnormal LFTs at this point. Jose Adames MD AFGretchen/PAMELLA /[id number]
[2019-11-22] MEDS: SODIUM CHLORIDE 0.9% 1000ML 1,000 ML IV SCH ×2 (12:26→16:59)
--- NOTE | 2019-11-22 18:12 | NUR ---
DR. ALCALA WAS MADE AWARE OF PATIENT'S WEAKNESS AND RESULTS OF CONSULTS TO DR. KALEIGH DUTTA. DR. SAENZ WAS MADE AWARE AND WILL SEE PATIENT TOMORROW FOR SURGERY CLEARANCE FOR POSSIBLE TUMOR RESECTION OR REMOVAL.
--- NOTE | 2019-11-22 19:25 | NUR ---
Patient received lying in bed. AAO x 3. Patient had no complaints of pain. Respirations even and non-labored. Drainage bag in place with sanguineous fluid. Safety measures implemented. Patient instructed to call for assistance when needed. Call light within reach.
[2019-11-22] MEDS: SERTRALINE HCL 100 MG TAB PO SCH (20:28)
[2019-11-22 20:55] LABS: BASOPHILS % 0.1 % (0.0-1.0); EOSINOPHILS % 0.1 % (0.0-6.0); HEMATOCRIT 35.9 % (34.2-44.1); HEMOGLOBIN 11.5 g/dL (12.0-16.0); LYMPHOCYTES # (AUTO) 0.7 (1.0-3.2); MEAN CORPUSCULAR HEMOGLOBIN 25.6 pg (28-32); MONOCYTES # (AUTO) 0.6 (0.2-0.8); MONOCYTES % 3.5 % (4.4-11.3); NEUTROPHILS % 91.8 % (38.7-80.0); PLATELET COUNT 297 x10e3/uL (140-360); RED BLOOD COUNT 4.49 x10e6/uL (3.6-5.1); RED CELL DISTRIBUTION WIDTH 21.5 % (11.7-14.4)
[2019-11-22 21:10] LABS: ALBUMIN 2.6 g/dL (3.5-5.0); ALBUMIN/GLOBULIN RATIO 0.7 (0.8-2.0); ANION GAP 15.9 mmol/L (8-16); CALCIUM 9.2 mg/dL (8.4-10.2); CREATININE, SERUM 1.06 mg/dL (0.57-1.11); POTASSIUM 3.9 mmol/L (3.5-5.1)
[2019-11-22 21:38] LABS: BAND NEUTROPHILS % (MANUAL) 7 %; LYMPHOCYTES % (MANUAL) 3 % (19-48); MONOCYTES % (MANUAL) 10 % (3.4-9.0); NEUTROPHILS % (MANUAL) 79 % (40-74); PLATELET ESTIMATE ADEQUATE; PLATELET MORPHOLOGY COMMENT NORMAL; RBC MORPHOLOGY COMMENT NORMAL
[2019-11-22] MEDS ORDERED: METRONIDAZOLE 500MG/NS 100ML 100 ML IV STA (21:41)
[2019-11-22] MEDS: PIPERACILLIN/TAZO 4.5 GM 100 ML IV SCH (22:45)
[2019-11-22] MEDS: PANTOPRAZOLE 40 MG 10ML VIAL IV SCH (23:43)
--- NOTE | 2019-11-22 23:52 | Diagnostic Imaging Report ---
EXAM: Abdomen Radiograph 1 View(s) INDICATION: ^abd distention ^Y COMPARISON: None FINDINGS: Surgical drain in the right upper quadrant. Cholecystectomy clips. Intraluminal and extraluminal rodriguez of the ascending colon are visualized (Rigler's sign), which is concerning for free air. Questionable subdiaphragmatic lucencies. Mild distention of the transverse colon measuring up to 6.7 cm with normal haustral fold pattern. Scattered loops of nondilated small bowel are seen in the abdomen. Gas and stool are seen throughout the rectum to the level of the colon. Small pleural effusion with adjacent airspace disease. Total right hip arthroplasty. Degenerative changes of the spine. Heterotopic ossification about the right hip. IMPRESSION: 1. Findings concerning for free air, which may be related to recent surgical intervention, given catheter projecting over the right hemiabdomen. 2. No evidence of obstruction. 3. Small pleural effusion and adjacent airspace disease could represent atelectasis or pneumonia. Correlate with chest radiograph. Results were discussed with nurse Lopez on 11/22/2019 at 11:50 PM. Signed by: Rafal Mcgovern MD on 11/22/2019 11:49 PM
[2019-11-23] VITALS (8 sets, daily range): BP systolic 112–145; BP diastolic 39–56
[2019-11-23] MEDS: METRONIDAZOLE 500MG/NS 100ML 100 ML IV SCH ×4 (01:08→16:39)
[2019-11-23] MEDS: LEVOTHYROXINE SODIUM 112 MCG TAB PO SCH (05:23)
[2019-11-23 06:05] LABS: BASOPHILS # (AUTO) 0.1 (0.0-0.1); BASOPHILS % 0.5 % (0.0-1.0); HEMATOCRIT 34.1 % (34.2-44.1); HEMOGLOBIN 11.1 g/dL (12.0-16.0); LYMPHOCYTES # (AUTO) 0.8 (1.0-3.2); LYMPHOCYTES % 4.4 % (18.0-39.1); MEAN CORPUSCULAR HEMOGLOBIN 26.6 pg (28-32); MEAN CORPUSCULAR HGB CONC 32.6 g/dL (31-35); MEAN CORPUSCULAR VOLUME 81.8 fL (81-99); MONOCYTES # (AUTO) 0.6 (0.2-0.8); MONOCYTES % 3.7 % (4.4-11.3); NEUTROPHILS # (AUTO) 15.5 (2.1-6.9); NEUTROPHILS % 90.6 % (38.7-80.0); PLATELET COUNT 247 x10e3/uL (140-360); RED BLOOD COUNT 4.17 x10e6/uL (3.6-5.1); RED CELL DISTRIBUTION WIDTH 24.4 % (11.7-14.4)
--- NOTE | 2019-11-23 06:17 | NUR ---
11/22/19 PROGRESS NOTE Subjective The patient was seen and evaluated on 11/22/2019. The patient was doing fine with no fever no chills. The patient did have biliary drainage place by interventional radiology. The patient was doing fine at the time of my visit. 100 cc of bloody drainage was noted. The patient hemodynamically stable. Her pain is controlled. Has been having right upper quadrant abdominal pain. Denies nausea, no vomiting, no chest pain, no shortness of breath, no fever no chills. Nurse was at the bedside at time of evaluation. The patient being follow-up by GI. Patient had MRCP done. Impression as follow: 1.Soft tissue thickening in the mid common bile duct resulting in occlusion of the common bile duct and severe intrahepatic biliary duct dilation. 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 Further evaluation with ERCP recommended. 2.Patient was seen and evaluated by ADULT SERVICES LIBRARIAN recommendations noted CT scan shoed a 5 cm pelvic ovaryan cyst. Pelvic ultrasound was ordered and also CA-125. Outpatient follow up is recommended Objective: Patient alert oriented to person time place. Patient in no apparent distress. Vital signs blood pressure blood pressure 150/61, respiration 20, pulse 23, temperature 97.9 HEENT: No gross abnormalities Neck: Supple no JVD Lungs: Clear to auscultation Heart: Regular rate and rhythm, no murmurs no gallops Abdomen: Distended abdomen and guarding but no rebound. Biliary drain in place. Bloody liquid noted. Extremities: No edema Neurologic: Alert oriented 3, no focal weakness. Psychiatrist: Normal mood, normal judgment. Skin: No rashes Lab data: CBC: Hemoglobin 11.5, WBC 16.36, platelet count 297,000 Sodium 136, potassium 3.9, chloride 107, CO2 17, BUN 31, creatinine 1.06 Assessment -severe intrahepatic biliary duct dilation. 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 -Obstructive jaundice -Status post biliary drain placement by interventional radiology -Acute kidney injury -Pelvic cystic mass. -Abdominal pain -Coronary artery disease -Diabetes mellitus -Generalized weakness -Jaundice -Elevated total bilirubin -Elevated AST and ALT -Hyperglycemia -Elevated creatinine -Leukocytosis Plan 11/19/2019 Reconcile medications BP control Glycemic control Pain control Electrolyte control DVT/GI prophylaxis Repeat labs Recommended pelvic ultrasound and ADULT SERVICES LIBRARIAN consultation due to abnormal finding. ADULT SERVICES LIBRARIAN consult GI consult 11/20/2019 Proceeded to request ADULT SERVICES LIBRARIAN consultation in view of abnormal CAT scan consistent with a 5 cm pelvic ovarian cyst. The patient is being followed by GI pertaining significant jaundice total bili 11.6 11/21/19 Continue present care, Palliative Nurse recommendations noted. GI is following ana maria gonzalez monitor total gildardo. 11/22/2019 Patient seen by interventional radiology. Patient is status post biliary intervention. Does have adnexal mass. We will discuss with family. Plan to request oncology consultation. Follow-up labs. Continue present care. Patient being seen by cardiology pertaining history of coronary disease and previous cardiac stenting. Has a drug-eluting stents. Plavix and aspirin resumed. On metoprolol 25 m p.o. daily. IV fluids.
--- NOTE | 2019-11-23 06:49 | Diagnostic Imaging Report ---
EXAMINATION: CHEST SINGLE (PORTABLE) INDICATION: ^leukocytosis ^[id number] ^2140 ^Y COMPARISON: None FINDINGS: Cardiomegaly. Prominent interstitial lung markings. Blunting of the left costophrenic angle with patchy retrocardiac opacities. No pneumothorax. IMPRESSION: Left base findings could represent a small effusion with adjacent atelectasis or pneumonia. Signed by: Rafal Mcgovern MD on 11/23/2019 6:45 AM
--- NOTE | 2019-11-23 06:50 | NUR ---
SBAR BEDSIDE REPORT RECEIVED FROM PM SHIFT RN. PATIENT FOUND LYING IN BED IN NO ACUTE DISTRESS. PATIENT IS PRIMARILY CZECH SPEAKING BUT CAN CONVERSE MINIMALLY IN ANGOLAN. PATIENT IS AAOX4 AND REQUESTED HELP WITH MEAL SET UP. HELP WAS PROVIDED AND PATIENT DENIED ANY FURTHER NEEDS. PATIENT WAS EDUCATED ON FALL RISK PRECAUTIONS AND VERBALIZED UNDERSTANDING. CALL LIGHT AND BELONGINGS PLACED NEARBY. PATIENT AWARE OF HOURLY ROUNDS. I WILL CONTINUE TO MONITOR
[2019-11-23] MEDS: PIPERACILLIN/TAZO 4.5 GM 100 ML IV SCH ×3 (07:12→22:00)
[2019-11-23] MEDS: SODIUM CHLORIDE 0.9% 1000ML 1,000 ML IV SCH ×2 (07:12→14:30)
--- NOTE | 2019-11-23 07:30 | NUR ---
PATIENT WAS ENCOURAGED TO USE INCENTIVE SPIROMETER AT BEDSIDE
[2019-11-23 07:37] LABS: ALBUMIN 2.3 g/dL (3.5-5.0); ALBUMIN/GLOBULIN RATIO 0.6 (0.8-2.0); CREATININE, SERUM 1.19 mg/dL (0.57-1.11)
[2019-11-23] MEDS: INSULIN REGULAR, HUMAN 100 UNIT/1 ML 3ML VIAL SQ SCH ×4 (07:40→21:00)
[2019-11-23] MEDS: GLIMEPIRIDE 2 MG TAB PO SCH ×2 (08:36→16:39)
[2019-11-23] MEDS: ASPIRIN 325 MG TAB PO SCH (08:37)
[2019-11-23] MEDS: BUSPIRONE HCL 5 MG TAB PO SCH ×2 (08:37→16:39)
[2019-11-23] MEDS: CLOPIDOGREL BISULFATE 75 MG TAB PO SCH (08:37)
[2019-11-23] MEDS: METOPROLOL TARTRATE 25 MG TAB PO SCH (08:37)
[2019-11-23] MEDS: PANTOPRAZOLE 40 MG 10ML VIAL IV SCH (10:11)
[2019-11-23] MEDS: HYDROCODONE/APAP 10MG-325MG TAB PO PRN (14:30)
--- NOTE | 2019-11-23 19:20 | NUR ---
Patient received lying in bed. AAO x 3. Daughter at bedside. No acute distress noted. Abdominal drainage bag in place. Call light within reach.
--- NOTE | 2019-11-23 20:31 | Progress Note ---
DATE: 11/23/2019 Cardiology Progress Note SUBJECTIVE: Carine has diminished abdominal discomfort. She denies any chest pain or shortness of breath at rest; however, ambulating to the restroom or short distances usually leads to some dyspnea for her. This has been ongoing for over a year, stable in pattern. OBJECTIVE: VITAL SIGNS: Temperature 98.2, heart rate 74, blood pressure 131/48, respiratory rate 20, and O2 saturation 96%. BMI 41. GENERAL: In no acute distress, alert. NECK: No JVD. HEENT: Jaundice is improving. CHEST: Clear to auscultation bilaterally. CARDIOVASCULAR: Regular rate and rhythm. Normal S1, S2. No S3 or S4. ABDOMEN: Soft. Bowel sounds positive. EXTREMITIES: No edema. Warm extremities. CARDIOVASCULAR MEDICATIONS: Reviewed. 1. Aspirin 81 mg daily. 2. Clopidogrel 75 mg daily. 3. Metoprolol tartrate 25 mg daily. LABORATORY STUDIES: Reviewed. Potassium 4, bicarbonate 15, creatinine 1.19, and glucose 131. White blood cells 17, hemoglobin 11, and platelets 247. INR 1.1. AST 70, ALT 51. ASSESSMENT AND PLAN: 1. A 74-year-old woman with morbid obesity; coronary artery disease, with previous multiple percutaneous coronary interventions, most recent in July of this year; insulin-dependent diabetes mellitus, hypertension, dyslipidemia, deconditioning, anemia, obstructive jaundice, and adnexal mass. Recommend beta pramod switched to succinate extended release 25 mg metoprolol every 12 hours. 2. Thirty-day revised cardiac index estimated risk for noncardiac surgery, 30- day mortality, heart attack, or cardiac arrest is estimated over 10%. BNP has been ordered to further risk stratify. Perioperative beta pramod advised. 3. Risk for stent thrombosis, although not prohibitive, would be higher at this point as the patient is still within a year, however, over three months post PCI. If decision made to proceed with surgery, suggest minimizing the duration or discontinuation of antiplatelet therapy given this risk. She furthermore remains deconditioned, rehabilitation might assist in the postoperative phase to assist to proceed with surgery be advised. Her elevated weight also likely increases risk for other complications related to abdominal surgery, particularly liver surgery being considered. We will continue to coordinate treatment strategy with multidisciplinary decision Dr. Solorio, Dr. Zhang, and . Please call with any questions to further discuss case at . MD HOWARD Owusu/PAMELLA /[id number] MTDJeffrey
[2019-11-23] MEDS: METOPROLOL SUCCINATE 25 MG TAB XL PO SCH (20:58)
[2019-11-23] MEDS: SERTRALINE HCL 100 MG TAB PO SCH (21:00)
--- NOTE | 2019-11-23 23:30 | NUR ---
Progress note Subjective: The patient is feeling better. Still having some abdominal pain. She has not had fever chills. She underwent placement of biliary drainage. I spoke at length with patient's daughter and advised about the likelihood diagnosis of cholangiocarcinoma. She stated that she would like to be present at the time that the diagnosis disclosed to her mother. ID requested hospital staff to allow daughter to come to the hospital for emotional support. I also requested oncology consultation with Dr. Colorado. Patient has had no fever no chills. Objective: Patient alert oriented to person time place. Patient in no apparent distress. Vital signs blood pressure 112/39, respiration 19, pulse 86, temperature 97.6. HEENT: Intrapedicle traumatic. Sclera icteric Neck: Supple no JVD Lungs: Clear to auscultation Heart: Regular rate and rhythm, no murmurs no gallops Abdomen: Soft non tender, no guarding. Extremities: No edema Neurologic: Alert oriented 3, no focal weakness. Psychiatrist: Normal mood, normal judgment. Skin: Significant jaundice noted Lab data: CBC disclosed hemoglobin 11.1, WBC 17.13, platelet count 247,000. Tata profile disclose: Sodium 135, potassium 4.0, chloride 106, CO2 15, BUN 38, creatinine 1.19 Assessment -severe intrahepatic biliary duct dilation. 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 -Obstructive jaundice -Status post biliary drain placement by interventional radiology -Acute kidney injury -Metabolic acidosis -Protein calorie malnutrition moderate -Pelvic cystic mass. -Abdominal pain -Coronary artery disease -Diabetes mellitus -Generalized weakness -Jaundice -Elevated total bilirubin -Elevated AST and ALT -Hyperglycemia -Elevated creatinine -Leukocytosis Plan 11/19/2019 Reconcile medications BP control Glycemic control Pain control Electrolyte control DVT/GI prophylaxis Repeat labs Recommended pelvic ultrasound and INCIDENT RESPONSE SPECIALIST consultation due to abnormal finding. INCIDENT RESPONSE SPECIALIST consult GI consult 11/20/2019 Proceeded to request INCIDENT RESPONSE SPECIALIST consultation in view of abnormal CAT scan consistent with a 5 cm pelvic ovarian cyst. The patient is being followed by GI pertaining significant jaundice total bili 11.6 11/21/19 Continue present care, Pot Puncher recommendations noted. GI is following ptcorrine gonzalez monitor total gildardo. 11/22/2019 Patient seen by interventional radiology. Patient is status post biliary intervention. Does have adnexal mass. We will discuss with family. Plan to request oncology consultation. Follow-up labs. Continue present care. Patient being seen by cardiology pertaining history of coronary disease and previous cardiac stenting. Has a drug-eluting stents. Plavix and aspirin resumed. On metoprolol 25 m p.o. daily. IV fluids. 11/23/2019 Patient placed on IV antibiotic consisting of Flagyl and Zosyn. Went ahead and requested consultation with oncology as mentioned Dr. Colorado. Continue IV fluids. Discussed with dad about patient condition and likely diagnosis of cholangiocarcinoma.
--- NOTE | 2019-11-23 23:50 | NUR ---
Dr. Solorio here to see patient. New order received to place patient on NPO status.
[2019-11-24] VITALS (8 sets, daily range): BP systolic 124–153; BP diastolic 48–62
[2019-11-24 00:32] LABS: BASOPHILS % 0.1 % (0.0-1.0); EOSINOPHILS % 0.1 % (0.0-6.0); HEMATOCRIT 30.3 % (34.2-44.1); HEMOGLOBIN 9.9 g/dL (12.0-16.0); LYMPHOCYTES # (AUTO) 0.9 (1.0-3.2); LYMPHOCYTES % 6.1 % (18.0-39.1); MEAN CORPUSCULAR HGB CONC 32.7 g/dL (31-35); MEAN CORPUSCULAR VOLUME 79.5 fL (81-99); MONOCYTES # (AUTO) 0.5 (0.2-0.8); MONOCYTES % 3.7 % (4.4-11.3); NEUTROPHILS # (AUTO) 12.7 (2.1-6.9); NEUTROPHILS % 89.4 % (38.7-80.0); PLATELET COUNT 240 x10e3/uL (140-360); RED BLOOD COUNT 3.81 x10e6/uL (3.6-5.1); RED CELL DISTRIBUTION WIDTH 21.6 % (11.7-14.4)
[2019-11-24] MEDS: PANTOPRAZOLE 40 MG 10ML VIAL IV SCH ×3 (00:33→23:09)
[2019-11-24] MEDS: METRONIDAZOLE 500MG/NS 100ML 100 ML IV SCH ×4 (00:38→17:08)
[2019-11-24 00:58] LABS: ANION GAP 15.7 mmol/L (8-16); CREATININE, SERUM 1.55 mg/dL (0.57-1.11); POTASSIUM 3.7 mmol/L (3.5-5.1)
[2019-11-24 01:13] LABS: ALBUMIN/GLOBULIN RATIO 0.6 (0.8-2.0); CALCIUM 8.6 mg/dL (8.4-10.2)
[2019-11-24] MEDS: PIPERACILLIN/TAZO 4.5 GM 100 ML IV SCH ×3 (05:37→22:00)
[2019-11-24] MEDS: LEVOTHYROXINE SODIUM 112 MCG TAB PO SCH (05:37)
--- NOTE | 2019-11-24 07:00 | NUR ---
RCD PT AT BED PT IS ALERT AND ORIENTED PT RESTING ON BED IV PATENT BED LOW AND LOCKED CALL LIGHT IN REACH
[2019-11-24 07:06] LABS: BASOPHILS % 0.1 % (0.0-1.0); EOSINOPHILS % 0.1 % (0.0-6.0); HEMATOCRIT 31.5 % (34.2-44.1); HEMOGLOBIN 10.2 g/dL (12.0-16.0); LYMPHOCYTES # (AUTO) 0.9 (1.0-3.2); LYMPHOCYTES % 6.6 % (18.0-39.1); MEAN CORPUSCULAR HEMOGLOBIN 25.6 pg (28-32); MEAN CORPUSCULAR HGB CONC 32.4 g/dL (31-35); MEAN CORPUSCULAR VOLUME 78.9 fL (81-99); MONOCYTES # (AUTO) 0.5 (0.2-0.8); MONOCYTES % 3.4 % (4.4-11.3); NEUTROPHILS # (AUTO) 11.8 (2.1-6.9); NEUTROPHILS % 88.6 % (38.7-80.0); PLATELET COUNT 241 x10e3/uL (140-360); RED BLOOD COUNT 3.99 x10e6/uL (3.6-5.1); RED CELL DISTRIBUTION WIDTH 21.8 % (11.7-14.4)
[2019-11-24] MEDS: INSULIN REGULAR, HUMAN 100 UNIT/1 ML 3ML VIAL SQ SCH ×4 (07:30→21:00)
--- NOTE | 2019-11-24 08:50 | Diagnostic Imaging Report ---
Abdomen, 2 views. History: Abdominal pain. Comparison: 11/22/2019. Findings: There are no dilated loops of bowel. Residual contrast is noted within the descending colon. There are no air-fluid levels. There is no evidence of free air. Cholecystectomy clips are present. Left-sided biliary drainage catheter is again noted. There are no masses or abnormal calcifications. Right hip prosthesis is present. IMPRESSION: Nonobstructive bowel gas pattern. No visible free air. Signed by: Anjum Montes on 11/24/2019 8:47 AM
[2019-11-24] MEDS: SODIUM CHLORIDE 0.9% 1000ML 1,000 ML IV SCH (08:59)
[2019-11-24] MEDS: CLOPIDOGREL BISULFATE 75 MG TAB PO SCH (09:00)
[2019-11-24] MEDS: METOPROLOL SUCCINATE 25 MG TAB XL PO SCH ×2 (09:00→21:23)
[2019-11-24] MEDS: GLIMEPIRIDE 2 MG TAB PO SCH ×2 (09:00→16:30)
[2019-11-24] MEDS: BUSPIRONE HCL 5 MG TAB PO SCH ×2 (09:00→16:30)
[2019-11-24] MEDS: ASPIRIN 325 MG TAB PO SCH (09:00)
--- NOTE | 2019-11-24 11:30 | NUR ---
PAGED AND NOTIFIED THE GLUCOSE LEVEL GOT NEW ORDERS
--- NOTE | 2019-11-24 11:54 | Consultation ---
DATE OF CONSULTATION: 11/24/[address] Ac Adams. HISTORY OF PRESENT ILLNESS: Carine Koch is a 74-year-old female, referred to me for evaluation of possible cholangiocarcinoma. The patient had presented with obstructive jaundice, history of past illness, history of diabetes, history of hypertension, history of hypothyroidism, history of major depression, history of morbid obesity, history of coronary artery disease with previous stents. SURGICAL HISTORY: History of coronary stent, history of hysterectomy, oophorectomy, right hip replacement, appendectomy, cholecystectomy. SOCIAL HISTORY: Noncontributory. FAMILY HISTORY: Noncontributory. ALLERGIES: REPORTED NONE. MEDICATIONS: At this time: 1. Metronidazole. 2. Zosyn. 3. Sodium chloride. 4. Aspirin. 5. Plavix. 6. Amaryl. 7. Hydralazine. 8. Hydrocodone. 9. Synthroid. 10. Metoprolol. 11. Ondansetron. 12. Protonix. 13. Zoloft. REVIEW OF SYSTEMS: HEENT: Normal. CARDIAC: Hypertension, hyperlipidemia, coronary artery disease. Coronary artery stents. RESPIRATORY: At the present time, left lung possible pleural effusion. GI: Obstructive jaundice at this time, possible cholangiocarcinoma. : Normal. MUSCULOSKELETAL: Normal. SKIN AND BREASTS: Normal. NEUROENDOCRINE: Diabetes mellitus, hypothyroidism. PHYSICAL EXAMINATION: GENERAL: A moderately built, obese female, no adenopathy. HEART: Within normal limits. LUNGS: Clear. ABDOMEN: Obese. RECTAL AND VAGINAL: Deferred. CENTRAL NERVOUS SYSTEM: Essentially normal. EXTREMITIES: Essentially normal. LABORATORY DATA: Shows a sodium of 11.3, hematocrit 36.1, white count of 7730, and platelets of 282,000. Chemistry shows a sodium of 133, potassium 4.2, chloride 100, CO2 17, BUN 20, creatinine 1.5, glucose 373, calcium 10.6, bilirubin 12.1, SGOT 103, SGPT 78, alkaline phosphatase 951, total protein 7.4, albumin 3.2, and globulin is 4.2. IMAGING DATA: Consists of the CAT scan of the abdomen and pelvis showed a pelvic cystic mass and the patient also had MRCP, which showed a 2 cm nodule in the left adrenal gland. Also, there was soft tissue thickening in the mid common bile duct resulting in occlusion of the common bile duct with severe intrahepatic biliary dilatation. IMPRESSION: 1. Hypercalcemia. 2. Obstructive jaundice. 3. Hypoalbuminemia. 4. Hyperglobulinemia. 5. Diabetes mellitus. 6. Anemia. 7. Adrenal adenoma. 8. Pelvic cystic mass. 9. Status post right hip arthroplasty. 10. Biliary dilatation. 11. Soft tissue thickening of the common bile duct, possible cholangiocarcinoma. 12. Blunting of the left costophrenic angle. PLAN, COMMENTS AND SUGGESTIONS: Suggest ERCP, suggest brush biopsies, suggest CA-19-9 with treatment depending on a bone investigations. MD ESTELLA Love/MODL /[id number] cc: MD Kevin Owusu MD Deya Dafashy, MD Jorge L Rodriguez, MD
[2019-11-24] MEDS: DEXTROSE 5%/0.45% SOD CHL 1,000 ML IV SCH (12:00)
--- NOTE | 2019-11-24 12:25 | Progress Note ---
DATE: 11/24/2019 Cardiology Progress Note. SUBJECTIVE: No complaints. OBJECTIVE: VITAL SIGNS: Temperature 97.8, heart rate 79, blood pressure 153/57, respiratory rate 17, O2 saturation 98%. GENERAL: No acute distress and alert. NECK: No JVD. CHEST: Clear to auscultation. CARDIOVASCULAR: Regular rate and rhythm. Normal S1, S2. ABDOMEN: Soft. Bowel sounds positive. EXTREMITIES: Trace edema. Normothermic. CARDIOVASCULAR MEDICATIONS: Reviewed: 1. Metoprolol succinate 25 mg every 12 hours. 2. Clopidogrel 75 mg daily. 3. Aspirin 81 mg daily. LABORATORY DATA: Reviewed, creatinine 1.5, glucose 131. White blood cells 13, hemoglobin 10.2, platelets 241. PT 14.9, INR 1.1. AST 50, ALT 41, alkaline phosphatase 455. ASSESSMENT AND PLAN: A 74-year-old woman, who presents with obstructive jaundice, diabetes, hypertension, dyslipidemia, morbid obesity, adnexal mass, coronary artery disease with previous PCI most recent in July last year, and anemia. RECOMMEND: Continue current cardiovascular medications. Outpatient beta pramod. RCRI cardiovascular risk for 30-day mortality, cardiac arrest, and TN estimated over 10%. No unstable cardiac conditions identified. Patient has an increased risk for stent thrombosis if dual antiplatelet therapy is discontinued. Therefore limiting duration of antiplatelet therapy interruption is advised. MD HOWARD Owusu/PAMELLA /[id number] MTDD
--- NOTE | 2019-11-24 15:28 | NUR ---
CM SPOKE WITH DR Sumaya ALCALA ORDERS TO TRANSFER TO [facility] FOR HIGHER LEVEL OF CARE OBSTRUCTIVE JAUNDICE AND OBSTUCTIVE TUMOR OF COMMON BILE DUCT TRANSFER FOR POSSIBLE WHIPPLE PROCEEDURE
--- NOTE | 2019-11-24 15:45 | Consultation ---
DATE OF CONSULTATION: 11/24/2019 INITIAL NEPHROLOGY CONSULTATION REPORT: REASON FOR CONSULTATION: Renal insufficiency and metabolic acidosis. HISTORY OF PRESENT ILLNESS: Ms. Carine Koch is a 74-year-old female, whom I am being asked to see because of a decreased serum bicarbonate of 16. It is believed that she is in a metabolic acidosis. When the patient was admitted a few days ago, her initial serum bicarbonate was 17 and went to 21, then 16, 17, 15, and now 16. She does have a mildly elevated anion gap as well. She is being evaluated for possible cholangiocarcinoma. The patient at present time denies taking any NSAIDs or any Holcomb-2 inhibitors. PAST MEDICAL HISTORY: The patient has a history of diabetes for about 10-15 years, history of hypertension, hypothyroidism, history of depression, morbid obesity, and coronary artery disease. She has had coronary stents placed. PAST SURGICAL HISTORY: Appendectomy, right hip replacement, hysterectomy, coronary stent, oophorectomy, and appendectomy. MEDICATIONS: As per MAR. REVIEW OF SYSTEMS: As per HPI. PHYSICAL EXAMINATION: VITAL SIGNS: Blood pressure 143/48, pulse 55, and respiratory rate 17. GENERAL: The patient is no acute distress. The patient is morbidly obese. HEENT: No increased JVD. CARDIOVASCULAR: Regular rate and rhythm. LUNGS: Decreased breath sounds at bases bilaterally. ABDOMEN: Positive bowel sounds. EXTREMITIES: The patient has edema of the arms. LABORATORY RESULTS: Sodium 134, potassium 3.7, chloride 106, bicarbonate 16, anion gap is 15.7, and BUN and creatinine 49 and 1.5 respectively. Alkaline phosphate 455. IMPRESSION: 1. Chronic kidney disease, stage 3. 2. Acute kidney injury. 3. Possible cholangiocarcinoma. 4. Decreased serum bicarbonate which could be metabolic acidosis or respiratory alkalosis with metabolic compensation. 5. Elevated anion gap. PLAN: The patient came in with an elevated serum creatinine. However, during the patient's hospitalization, actually her serum creatinine returned to normal, as of late 0.9-0.8, but then she is going into acute kidney injury again. She does have decreased serum bicarbonate. I want to confirm this metabolic acidosis by getting a venous blood gas and if it is, then maybe I will give her some alkali. I will check a serum lactic acid level and serum ketones. I will check a venous blood gas to confirm it is a metabolic acidosis. NSAIDs, Holcomb-2 inhibitor, and IV contrast should be avoided. She most likely has diabetic nephropathy. I will follow the patient with you. Thank you, Dr. Adams, for allowing me to participate in the care of this patient with you. Ather MD BIANCA Mullen/PAMELLA /[id number]
--- NOTE | 2019-11-24 15:50 | NUR ---
ORDER RECEIVED FOR TRANSFER TO [facility] FOR HIGHER LOC. Vance ALCALA TO DO DOC TO DOC. CALL TO PT'S ROOM. DTR AT THE BEDSIDE. DISCUSSED PT TRANSFERRING TO [facility] [place]. DTR AGREED. CONSENT WAS SIGNED. MOT INITIATED. CALL TO [facility] @ [phone]. SPOKE Greer ANNE. FAXED FS, H&P AND PROGRESS NOTES TO FAX: [phone]. WILL AWAIT CALL BACK.
--- NOTE | 2019-11-24 16:52 | NUR ---
PAGED DR CORONEL AND NOTIFIED THE LAB RESULT GOT NEW ORDERS
[2019-11-24] MEDS: SODIUM BICARBONATE 650 MG TAB PO SCH (16:58)
--- NOTE | 2019-11-24 18:42 | NUR ---
PT RESTING ON BED BED SIDE REPORT GIVEN TO ONCOMING NURSE
[2019-11-24] MEDS: SERTRALINE HCL 100 MG TAB PO SCH (21:23)
[2019-11-25] VITALS (7 sets, daily range): BP systolic 112–164; BP diastolic 42–68
[2019-11-25] MEDS: METRONIDAZOLE 500MG/NS 100ML 100 ML IV SCH ×4 (00:26→18:29)
[2019-11-25] MEDS: DEXTROSE 5%/0.45% SOD CHL 1,000 ML IV SCH ×2 (01:20→18:29)
[2019-11-25] MEDS: PIPERACILLIN/TAZO 4.5 GM 100 ML IV SCH ×3 (06:00→21:32)
[2019-11-25] MEDS: LEVOTHYROXINE SODIUM 112 MCG TAB PO SCH (06:30)
--- NOTE | 2019-11-25 07:00 | NUR ---
Patient resting comfortably. No acute distress noted. Walking rounds done. Shift report given to oncoming nurse.
[2019-11-25] MEDS: INSULIN REGULAR, HUMAN 100 UNIT/1 ML 3ML VIAL SQ SCH ×4 (07:30→20:54)
[2019-11-25 07:42] LABS: ANION GAP 13.4 mmol/L (8-16); CALCIUM 8.8 mg/dL (8.4-10.2); CREATININE, SERUM 1.21 mg/dL (0.57-1.11); POTASSIUM 3.4 mmol/L (3.5-5.1)
[2019-11-25 07:52] LABS: BASOPHILS # (AUTO) 0.1 (0.0-0.1); BASOPHILS % 0.5 % (0.0-1.0); EOSINOPHILS # (AUTO) 0.1 (0.0-0.4); EOSINOPHILS % 0.7 % (0.0-6.0); HEMATOCRIT 29.5 % (34.2-44.1); HEMOGLOBIN 9.6 g/dL (12.0-16.0); LYMPHOCYTES # (AUTO) 0.8 (1.0-3.2); LYMPHOCYTES % 7.1 % (18.0-39.1); MEAN CORPUSCULAR HEMOGLOBIN 26.2 pg (28-32); MEAN CORPUSCULAR HGB CONC 32.5 g/dL (31-35); MEAN CORPUSCULAR VOLUME 80.4 fL (81-99); MONOCYTES # (AUTO) 0.4 (0.2-0.8); MONOCYTES % 3.6 % (4.4-11.3); NEUTROPHILS # (AUTO) 9.6 (2.1-6.9); PLATELET COUNT 262 x10e3/uL (140-360); RED BLOOD COUNT 3.67 x10e6/uL (3.6-5.1); RED CELL DISTRIBUTION WIDTH 22.5 % (11.7-14.4)
--- NOTE | 2019-11-25 07:52 | NUR ---
PT PENDING TRANS TO [facility]
[2019-11-25 08:11] LABS: ALBUMIN 1.7 g/dL (3.5-5.0); ALBUMIN/GLOBULIN RATIO 0.4 (0.8-2.0)
--- NOTE | 2019-11-25 09:09 | NUR ---
11/24/2019 PROGRESS NOTE Subjective: The patient is feeling better. Still having some abdominal pain. She has not had fever chills. No nausea, no vomiting no chest pain or shortness of breath/ Objective: Vital signs: Temperature 98.2, pulse 82, respirations 18, pulse ox 97% on room air, blood pressure 140/62. Patient alert oriented to person time place. Patient in no apparent distress. HEENT: Intrapedicle traumatic. Sclera icteric Neck: Supple no JVD Lungs: Clear to auscultation Heart: Regular rate and rhythm, no murmurs no gallops Abdomen: Soft non tender, no guarding. Extremities: No edema Neurologic: Alert oriented 3, no focal weakness. Psychiatrist: Normal mood, normal judgment. Skin: Significant jaundice noted Laboratory data (11/24/2019) WBC 13.35, hemoglobin 10.2, hematocrit 31.5, POC glucose 80. Sodium 134, carbon dioxide 16, BUN 49, creatinine 1.55, estimated GFR 33, BUN/creatinine ratio 32, glucose 131, total bilirubin 9.9, AST 50, alkaline phosphatase 455, total protein 5.6, albumin 2.0, globulin 3.6. Assessment -severe intrahepatic biliary duct dilation. 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 -Obstructive jaundice -Status post biliary drain placement by interventional radiology -Acute kidney injury -Metabolic acidosis -Protein calorie malnutrition moderate -Pelvic cystic mass. -Abdominal pain -Coronary artery disease -Diabetes mellitus -Generalized weakness -Jaundice -Elevated total bilirubin -Elevated AST and ALT -Hyperglycemia -Elevated creatinine -Leukocytosis Plan 11/19/2019 Reconcile medications BP control Glycemic control Pain control Electrolyte control DVT/GI prophylaxis Repeat labs Recommended pelvic ultrasound and LITURGICAL MUSIC DIRECTOR consultation due to abnormal finding. LITURGICAL MUSIC DIRECTOR consult GI consult 11/20/2019 Proceeded to request LITURGICAL MUSIC DIRECTOR consultation in view of abnormal CAT scan consistent with a 5 cm pelvic ovarian cyst. The patient is being followed by GI pertaining significant jaundice total bili 11.6 11/21/19 Continue present care, Senior Loan Processor recommendations noted. GI is following patient, merly to monitor total bili. 11/22/2019 Patient seen by interventional radiology. Patient is status post biliary intervention. Does have adnexal mass. We will discuss with family. Plan to request oncology consultation. Follow-up labs. Continue present care. Patient being seen by cardiology pertaining history of coronary disease and previous cardiac stenting. Has a drug-eluting stents. Plavix and aspirin resumed. On metoprolol 25 m p.o. daily. IV fluids. 11/23/2019 Patient placed on IV antibiotic consisting of Flagyl and Zosyn. Went ahead and requested consultation with oncology as mentioned Dr. [place]. Continue IV fluids. Discussed with daughter about patient's condition and likely diagnosis of cholangiocarcinoma. 11/24/19 Patient's condition was discussed with Dr. Solorio and plan to transfer patient to the medical center for high level of care, Priority: Routine Comments: Please arrange transfer patient to higher level of care. Patient needs ERCP suspected cholangiocarcinoma. Bilirubin around 12. Lesion is localized, would be high risk for surgery given history of CAD and cardiac stenting. Please call transfer center and asked them to communicate Dr. Kevin Francis.
--- NOTE | 2019-11-25 09:58 | Progress Note ---
DATE: 11/25/2019 SUBJECTIVE: This is a 74-year-old female referred to me for possible cholangiocarcinoma. Hematologically, the patient remained stable with hemoglobin of 9.6, white count 11,200, and platelets of 262,000. Chemistry still shows a fairly high bilirubin of 10. The total proteins are 5.6, albumin is very low at 1.7, globulin relatively high at 3.9. The tumor markers CA19-9 is pending. ERCP with fresh biopsy is pending. Surgical consultation is pending. My clinical judgment is as I have dictated on 11/24/2019. I will confine myself to Hematology only. Thank you very much for allowing me to participate in management of this patient. MD ESTELLA Love/PAMELLA /[id number]
[2019-11-25] MEDS: SODIUM BICARBONATE 650 MG TAB PO SCH ×2 (10:08→18:29)
[2019-11-25] MEDS: GLIMEPIRIDE 2 MG TAB PO SCH ×2 (10:08→18:29)
[2019-11-25] MEDS: BUSPIRONE HCL 5 MG TAB PO SCH ×2 (10:08→18:29)
[2019-11-25] MEDS: ASPIRIN 325 MG TAB PO SCH (10:08)
[2019-11-25] MEDS: CLOPIDOGREL BISULFATE 75 MG TAB PO SCH (10:08)
[2019-11-25] MEDS: METOPROLOL SUCCINATE 25 MG TAB XL PO SCH ×2 (10:09→20:55)
[2019-11-25] MEDS: PANTOPRAZOLE 40 MG 10ML VIAL IV SCH ×2 (10:09→21:32)
--- NOTE | 2019-11-25 13:58 | NUR ---
11/25/19 progress note Subjective: The patient is feeling better. Complaining of some abdominal pain. She denies fever chills. No nausea, no vomiting no chest pain or shortness of breath/ Objective: Vital signs: BP 154/88, pulse 90, respirations 17. Patient alert oriented to person time place. Patient in no apparent distress. HEENT: Intrapedicle traumatic. Sclera icteric Neck: Supple no JVD Lungs: Clear to auscultation Heart: Regular rate and rhythm, no murmurs no gallops Abdomen: Soft non tender, no guarding. Extremities: No edema Neurologic: Alert oriented 3, no focal weakness. Psychiatrist: Normal mood, normal judgment. Skin: Significant jaundice noted Laboratory data (11/24/2019) WBC 13.35, hemoglobin 10.2, hematocrit 31.5, POC glucose 80. Sodium 134, carbon dioxide 16, BUN 49, creatinine 1.55, estimated GFR 33, BUN/creatinine ratio 32, glucose 131, total bilirubin 9.9, AST 50, alkaline phosphatase 455, total protein 5.6, albumin 2.0, globulin 3.6. 11/25/2019 sodium 141, potassium 3.4, chloride 112, bicarb 19, BUN 33 creatinine 1.21. Assessment -severe intrahepatic biliary duct dilation. 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 -Obstructive jaundice -Status post biliary drain placement by interventional radiology -Acute kidney injury -Metabolic acidosis -Protein calorie malnutrition moderate -Pelvic cystic mass. -Abdominal pain -Coronary artery disease -Diabetes mellitus -Generalized weakness -Jaundice -Elevated total bilirubin -Elevated AST and ALT -Hyperglycemia -Elevated creatinine -Leukocytosis Plan 11/19/2019 Reconcile medications BP control Glycemic control Pain control Electrolyte control DVT/GI prophylaxis Repeat labs Recommended pelvic ultrasound and FILTER WASHER AND PRESSER consultation due to abnormal finding. FILTER WASHER AND PRESSER consult GI consult 11/20/2019 Proceeded to request FILTER WASHER AND PRESSER consultation in view of abnormal CAT scan consistent with a 5 cm pelvic ovarian cyst. The patient is being followed by GI pertaining significant jaundice total bili 11.6 11/21/19 Continue present care, Weaver Hand Loom recommendations noted. GI is following patientmerly to monitor total bili. 11/22/2019 Patient seen by interventional radiology. Patient is status post biliary intervention. Does have adnexal mass. We will discuss with family. Plan to request oncology consultation. Follow-up labs. Continue present care. Patient being seen by cardiology pertaining history of coronary disease and previous cardiac stenting. Has a drug-eluting stents. Plavix and aspirin resumed. On metoprolol 25 m p.o. daily. IV fluids. 11/23/2019 Patient placed on IV antibiotic consisting of Flagyl and Zosyn. Went ahead and requested consultation with oncology as mentioned Dr. [place]. Continue IV fluids. Discussed with daughter about patient's condition and likely diagnosis of cholangiocarcinoma. 11/24/19 Patient's condition was discussed with Dr. Solorio and plan to transfer patient to the [facility] for high level of care. 11/25/2019 Blood gas: pH 7.38, PCO2 30, PO2 18, metabolic acidosis. The patient was started on sodium bicarb tablets, bicarbonate level improving. We will continue to monitor electrolytes, transferring [facility].
--- NOTE | 2019-11-25 20:01 | NUR ---
pt resting comfortably in bed; family at bedside no signs of distress no complaints at this time
[2019-11-25] MEDS: SERTRALINE HCL 100 MG TAB PO SCH (20:56)
--- NOTE | 2019-11-25 21:15 | Progress Note ---
DATE: 11/25/2019 Renal Progress Note SUBJECTIVE: Events over the past 24 hours have been noted. No chest pain or shortness of breath. PHYSICAL EXAMINATION: VITAL SIGNS: Blood pressure is 154/88, pulse 90, respirations 17. GENERAL: The patient is morbidly obese. HEENT: No increased JVD. CARDIOVASCULAR: Regular rate and rhythm. LUNGS: Decreased breath sounds at the bases bilaterally. ABDOMEN: Positive bowel sounds. EXTREMITIES: Has some edema of the hands and arms. LABORATORY RESULTS: Sodium 141, potassium 3.4, chloride 112, bicarbonate 19, BUN and creatinine 33 and 1.21 respectively. IMPRESSION: 1. Chronic kidney disease, stage 3. 2. Acute kidney injury, superimposed on chronic kidney disease. 3. Possible cholangiocarcinoma. 4. Decreased serum bicarbonate which is metabolic acidosis. 5. Elevated anion gap. The patient had a blood gas which showed pH of 7.38, pCO2 of 30, PO2 of 18. It is confirmed that she has metabolic acidosis. I started her on sodium bicarbonate tablets. Her serum bicarbonate is much better today. Her potassium is low. I have ordered 40 mEq of potassium p.o. to be given. I also ordered sodium bicarbonate 1300 mg b.i.d. p.o. The patient's renal function is also much improved. I understand she is going to be transferred to the [facility] [place]. Ather MD BIANCA Mullen/PAMELLA /[id number]
[2019-11-26] VITALS: BP 117/39
--- NOTE | 2019-11-26 00:16 | Progress Note ---
DATE: 11/25/2019 Cardiology Note SUBJECTIVE: The patient has no complaints. OBJECTIVE: VITAL SIGNS: Blood pressure is 112/42 mmHg, heart rate is 77, the temperature is 99 F, the oxygen saturation is 97%. GENERAL: The patient is in no acute distress. She is awake and alert. HEAD AND NECK: Normocephalic and atraumatic head. Anicteric conjunctivae. No elevated jugular venous pressure. CHEST: Clear to auscultation. CARDIOVASCULAR: Regular rate and rhythm. Normal S1 and S2. No murmurs heard. ABDOMEN: Soft, nontender. EXTREMITIES: No leg edema. MEDICATIONS: Cardiovascular medications were reviewed: 1. Metoprolol succinate 25 mg every 12 hours. 2. Clopidogrel 75 mg one a day. 3. Aspirin 81 mg one a day. LABORATORY DATA: wbc count: 11K, H/H 9.6/29.4, platelet count: 262 K. Na 141, K 3.4, Cl 112, CO2: 19, BUN 33, cr 1.2, glucose 78. Liver tests: AST 46, ALT 30, alk phoph 324, albumin 1.7 ASSESSMENT AND PLAN: A 74-year-old woman, who presented with obstructive jaundice. Medical history is significant for diabetes, hypertension, dyslipidemia, morbid obesity, adnexal mass, coronary artery disease with previous PCI and anemia. RECOMMENDATIONS: 1. Continue current cardiovascular medication. 2. Status post stent placement: continue dual anti-platelet therapy. 3. Other problems as per primary care doctor and other consultants. Gladys Zarate MD EC/MODL /[id number] MTDJeffrey
[2019-11-26 04:00] VITALS: BP 137/54
[2019-11-26] MEDS: DEXTROSE 5%/0.45% SOD CHL 1,000 ML IV SCH (04:00)
[2019-11-26] MEDS: LEVOTHYROXINE SODIUM 112 MCG TAB PO SCH (05:41)
[2019-11-26] MEDS: METRONIDAZOLE 500MG/NS 100ML 100 ML IV SCH ×3 (05:41→11:12)
[2019-11-26] MEDS: PIPERACILLIN/TAZO 4.5 GM 100 ML IV SCH ×2 (06:00→13:45)
--- NOTE | 2019-11-26 07:00 | NUR ---
RECEIVED BEDSIDE SHIFT REPORT FROM OFF GOING NIGHT NURSE. RESPIRATIONS EVEN AND NONLABORED. PATIENT IN STABLE CONDITION, NO S/S OF DISTRESS NOTED. PATIENT ABLE TO VOICE NEEDS. IV FLUIDS INFUSING, SITE ASYMPTOMATIC AND PATENT, TRANSPARENT DRESSING C/D/I. T-TUBE NOTED TO THE LEFT ABDOMEN DRAINING GREEN FLUID INTO THE DRAINAGE BAG. TELEMETRY APPLIED. DAUGHTER AT BEDSIDE. BED IN LOWEST POSITION AND LOCKED, SIDE RAILS X2, NONSKID SOCKS APPLIED. CALL LIGHT WITHIN REACH.
[2019-11-26 07:48] VITALS: BP 126/50
[2019-11-26 08:00] VITALS: BP 126/50
[2019-11-26] MEDS: METOPROLOL SUCCINATE 25 MG TAB XL PO SCH (08:36)
[2019-11-26] MEDS: ASPIRIN 325 MG TAB PO SCH (08:36)
[2019-11-26] MEDS: SODIUM BICARBONATE 650 MG TAB PO SCH (08:36)
[2019-11-26] MEDS: BUSPIRONE HCL 5 MG TAB PO SCH (08:36)
[2019-11-26] MEDS: CLOPIDOGREL BISULFATE 75 MG TAB PO SCH (08:36)
[2019-11-26] MEDS: GLIMEPIRIDE 2 MG TAB PO SCH (08:36)
[2019-11-26] MEDS: PANTOPRAZOLE 40 MG 10ML VIAL IV SCH (09:00)
[2019-11-26] MEDS: INSULIN REGULAR, HUMAN 100 UNIT/1 ML 3ML VIAL SQ SCH ×2 (10:37→11:30)
[2019-11-26 12:00] VITALS: BP 137/52
--- NOTE | 2019-11-26 12:04 | NUR ---
REPORT CALL TO . [facility]'- REPORT GIVEN TO NATALIE DOMINIQUE.
--- NOTE | 2019-11-26 12:08 | Progress Note ---
DATE: 11/26/2019 Cardiology Progress Note SUBJECTIVE: No new complaints. OBJECTIVE: VITAL SIGNS: Temperature 98.4, heart rate 72, blood pressure 126/50, respiratory rate 24, and O2 saturation 99%. GENERAL: In no acute distress. Alert. NECK: No JVD. CHEST: Clear to auscultation. CARDIOVASCULAR: Regular rate and rhythm. Normal S1 and S2. ABDOMEN: Soft. EXTREMITIES: Trace edema. CARDIOVASCULAR MEDICATIONS: Reviewed. Metoprolol succinate 25 mg b.i.d., clopidogrel 75 mg daily, and aspirin 81 mg daily. STUDIES: Reviewed. Creatinine 1.2, potassium 3.4, and bicarbonate 19. Hemoglobin 9.6, white blood cells 11, and platelets 262. AST 46, ALT 30, alkaline phosphatase 324, and total bilirubin is 10. ASSESSMENT AND PLAN: A 74-year-old woman with suspected cholangiocarcinoma, obstructive jaundice, diabetes, hypertension, dyslipidemia, morbid obesity, coronary artery disease with previous coronary stents, most recent in July 2019, hypothyroidism, deconditioning, and obesity. RECOMMENDATIONS: Continue current cardiovascular medications. The patient awaiting possible transfer to [place] for continuation of care. Perioperative recommendations provided. Please see note from 11/22 and 11/24/2019. MD HOWARD Owusu/PAMELLA /[id number]
--- NOTE | 2019-11-26 13:24 | Progress Note ---
DATE: 11/26/2019 SUBJECTIVE: Carine Koch is a 74-year-old female, referred to me for evaluation of a high bilirubin. For detailed consult, please review my dictation. The patient still is anemic at a hemoglobin of 9.6, however, this is anemia of chronic disease with normal indices, RDW slightly high, however, MCHC is normal at 32.5, white count [id number]. Chemistry remains about the same with a very low albumin of 1.7. The patient's bilirubin being 9.9. I have spoken to the daughter multiple times. They are awaiting the transfer of this patient to a liver surgeon. I am told that this will be arranged by Dr. Braydon Hodges. MD ESTELLA Love/PAMELLA /[id number]
--- NOTE | 2019-11-26 14:57 | NUR ---
PATIENT TRANSFERRED TO [facility] VIA [facility]. REPORT GIVEN TO NATALIE DOMINIQUE. PATIENT IN STABLE CONDITION, NO S/S OF DISTRESS NOTED. IV SITE LEFT PER RN REQUEST, IV SITE TO THE LEFT FOREARM, ASYMPTOMATIC AND PATENT, TRANSPARENT DRESSING C/D/I. DAUGHTER AT THE PATIENT'S SIDE. T-TUBE NOTED TO THE LEFT ABDOMEN DRAINING GREEN FLUID TO THE DRAINAGE BAG.
--- NOTE | 2019-11-26 16:05 | Progress Note ---
DATE: 11/26/2019 Renal Progress Note SUBJECTIVE: Events over the past 24 hours have been noted. PHYSICAL EXAMINATION: VITAL SIGNS: Blood pressure 137/52, pulse 67, and respirations 18. GENERAL: The patient is morbidly obese. HEENT: No increased JVD. CARDIOVASCULAR: Regular rate and rhythm. LUNGS: Decreased breath sounds at bases bilaterally. ABDOMEN: Positive bowel sounds. EXTREMITIES: Has trace edema of the hands. LABORATORY RESULTS: Sodium 141, potassium 3.4, chloride 112, bicarbonate 19, BUN and hematocrit 33 and 1.2 respectively. IMPRESSION: 1. Acute kidney injury superimposed on chronic kidney disease, essentially resolving. 2. Chronic kidney disease, stage 3. 3. Possible cholangiocarcinoma. 4. Metabolic acidosis. 5. Hypokalemia. PLAN: The patient's acidosis remaining stable. She is on sodium bicarbonate tablets. We will continue this. I will have her potassium replaced. The patient is to be transferred to the Medical [facility]. At this point, I do not have any other new recommendations. I think it will be a good idea to continue sodium bicarb 1300 mg b.i.d. p.o. at least for the next several days. No new recommendations at this point. Her renal function has returned to her baseline. I will sign off the case since there are no new recommendations, but I will still be available. Please reconsult as needed. Thank you for allowing me to participate in the care of this patient with you. Ather MD BIANCA Mullen/PAMELLA /[id number]
--- NOTE | 2019-12-25 10:23 | NUR ---
Discharge summary Admission date: 11/20/2019 Discharge date: 11/26/2019 Final diagnosis Abnormality of globulin Acidosis Acquired absence of other specified parts of digestive tract Acute kidney failure Allergy status narcotic agent Anemia and other chronic diseases Atherosclerotic heart disease Benign neoplasm of left adrenal gland Calculus of bile duct without cholangitis or cholecystitis without obstruction Chronic kidney disease stage III Encounter for screening of other viral diseases Hypercalcemia Hyperlipidemia Hypertensive chronic kidney disease stage I-IV Hypokalemia Hypothyroidism Intrahepatic bile duct carcinoma Long-term use of aspirin and insulin Moderate protein calorie malnutrition Morbid obesity due to excess calories Disorders of the plasma Malaise Coronary angioplasty implant and graft presence 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
--- NOTE | 2020-01-20 16:26 | Diagnostic Imaging Report ---
PROCEDURE: Transhepatic cholangiogram and biliary drain placement Procedural Personnel Attending physician(s): Tico Jasmine MD Fellow physician(s): None Resident physician(s): None Advanced practice provider(s): None Pre-procedure diagnosis: Biliary obstruction Post-procedure diagnosis: Same Indication: Biliary obstruction Additional clinical history: None Complications: No immediate complications. IMPRESSION: Transhepatic cholangiogram demonstrates dilated intrahepatic bile ducts and severe narrowing of the proper hepatic duct. Successful placement of 10Fr internal external biliary drain with distal loop in the duodenum. Plan: Drain to gravity and trend liver enzymes. Drain can be capped for internal drainage when liver enzymes stabilize. PROCEDURE SUMMARY: - Percutaneous transhepatic cholangiogram(s) - Biliary drain placement(s) as described below - Additional procedure(s): None PROCEDURE DETAILS: Pre-procedure Consent: Informed consent for the procedure including risks, benefits and alternatives was obtained and time-out was performed prior to the procedure. Preparation: The site was prepared and draped using maximal sterile barrier technique including cutaneous antisepsis. Anesthesia/sedation Level of anesthesia/sedation: Moderate sedation (conscious sedation) Anesthesia/sedation administered by: Independent trained observer under attending supervision with continuous monitoring of the patient?s level of consciousness and physiologic status Total intra-service sedation time (minutes): 60 Left cholangiogram and biliary drain placement Local anesthesia was administered. A needle was used to access a left intrahepatic duct under ultrasound and fluoroscopic guidance, and cholangiography was performed. A guidewire was passed through the bile ducts and into the small bowel and a biliary drainage catheter was placed. Final contrast injection was performed. Initial cholangiogram findings: Dilated intrahepatic ducts and proper hepatic duct with significant narrowing of the proper hepatic duct Biliary drain: Cook internal-external biliary drain Biliary drain diameter ([place] Leonean): 10Fr Final cholangiogram findings: Contrast opacification of biliary tree and small bowel External catheter securement: Non-absorbable suture Additional biliary intervention Biliary intervention: None Location of intervention: Not applicable Device used: Not applicable Description of intervention: Not applicable Post-intervention findings: Not applicable Contrast Contrast agent: Isovue 370 Contrast volume (mL): 20 Radiation Dose Fluoroscopy time (minutes): 26.0 Reference air kerma (mGy): 502 Additional Details Additional description of procedure: None Equipment details: None Specimens removed: None Estimated blood loss (mL): Less than 10 Standardized report: [email or web address] Attestation Signer name: Tico Jasmine MD I attest that I was present for the entire procedure. I reviewed the stored images and agree with the report as written. Signed by: Tico Jasmine MD on 01/20/2020 4:23 PM
== END 2019-11-26 14:25 | disposition short-term general hospital (02) | DRG 436 ==
LOC: ER 18:14 → ERHOLD 20:15 → MED/SURG2 20:59
PROVIDERS: ADMIT Internal Medicine; ATTEND Internal Medicine
PROC: BF101ZZ Fluoroscopy of Bile Ducts using Low Osmolar Contrast (ICD-10-PCS; principal; 2019-11-20)
PROC: 0F9630Z Drainage of Left Hepatic Duct with Drainage Device, Percutaneous Approach (ICD-10-PCS; 2019-11-20)
DX: C22.1 Intrahepatic bile duct carcinoma (principal); N17.9 Acute kidney failure, unspecified; E87.2 Acidosis; E44.0 Moderate protein-calorie malnutrition; Z68.41 Body mass index [BMI] 40.0-44.9, adult; R53.81 Other malaise; E83.52 Hypercalcemia; E88.09 Other disorders of plasma-protein metabolism, not elsewhere classified; R77.1 Abnormality of globulin; D35.02 Benign neoplasm of left adrenal gland; E11.65 Type 2 diabetes mellitus with hyperglycemia; E03.9 Hypothyroidism, unspecified; E78.5 Hyperlipidemia, unspecified; E66.01 Morbid (severe) obesity due to excess calories; Z88.5 Allergy status to narcotic agent; Z88.2 Allergy status to sulfonamides; I25.10 Atherosclerotic heart disease of native coronary artery without angina pectoris; Z95.5 Presence of coronary angioplasty implant and graft; Z90.49 Acquired absence of other specified parts of digestive tract; Z96.641 Presence of right artificial hip joint; Z79.82 Long term (current) use of aspirin; Z79.4 Long term (current) use of insulin; E11.22 Type 2 diabetes mellitus with diabetic chronic kidney disease; I12.9 Hypertensive chronic kidney disease with stage 1 through stage 4 chronic kidney disease, or unspecified chronic kidney disease; N18.30 Chronic kidney disease, stage 3 unspecified; D63.8 Anemia in other chronic diseases classified elsewhere; E87.6 Hypokalemia; Z20.828 Contact with and (suspected) exposure to other viral communicable diseases
CPT/HCPCS: 36415; 47534; 47535; 71045; 74019; 74176; 74181; 74470; 76856; 76942; 80053; 81001; 82140; 82948; 83605; 83690; 83880; 85025; 85610; 86301; 86304; 93005; 93306; 99152; 99153; 99284; J0360; J0696; J1817; J2001; J2250; J2405; J2543; J3010; J7030; J7050; Q9967; U0002